=== PATIENT | female | born 1940 | race Caucasian/White ===

== ENCOUNTER → 2017-01-04 | Outpatient (CLI) | payer MEDICARE, BC | END | disposition home or self-care (01) | LOC: GMAL 14:46 | PROVIDERS: ATTEND Family Medicine | DX: D51.3 Other dietary vitamin B12 deficiency anemia (principal); E55.9 Vitamin D deficiency, unspecified ==

== ENCOUNTER → 2017-01-11 | Outpatient (CLI) | payer MEDICARE | END | disposition home or self-care (01) | LOC: GMAL 15:12 | PROVIDERS: ATTEND Family Medicine | DX: R53.83 Other fatigue (principal) ==

== ENCOUNTER 2017-02-09 11:38 | Emergency (ER) | payer MEDICARE ==
[2017-02-09 11:46] VITALS: BP 140/69; TEMP 98.5; O2SAT 98
--- NOTE | 2017-02-09 12:18 | RAD ---
EXAM DESCRIPTION: Knee,Right Complete CLINICAL HISTORY: 76 years, Female, right knee pain after fall COMPARISON: None TECHNIQUE: Three views of the right knee FINDINGS: There is a transverse nondisplaced fracture through the lower third of the patella. This extends into the articular surface of the patella and there is a related moderate joint effusion. This is an acute fracture with no evidence of healing. Chondrocalcinosis of the menisci noted consistent with CPPD/pseudogout. IMPRESSION: 1. Acute transverse nondisplaced intra-articular fracture patella 2. CPPD/pseudogout Electronically signed by: Jhon Hickey MD 02/09/2017 12:17 PM CDT
[2017-02-09] MEDS ORDERED: traMADol HCL 50 MG TAB PO ONE (12:31)
--- NOTE | 2017-02-09 12:36 | ED.PDOC ---
History of Present Illness - General Chief Complaint: Lower Extremity Injury Stated Complaint: right knee discomfort Time Seen by Provider: 02/09/17 11:41 Source: patient Exam Limitations: no limitations - History of Present Illness Initial Comments: Patient slipped on water in the bathroom and struck her right knee on the floor. She also struck her face. She complains of right knee pain. She did not lose consciousness. She had no chest pain nor light-headedness/dizziness before or after falling. She said she simply slipped. Pain is over the anterior patella, non-radiating, throbbing, constant, worse with movement, better with rest, no previous trauma to that knee. No other complaints. Timing/Duration: 1-3 hours Severity: moderate Improving Factors: rest Worsening Factors: movement Associated Symptoms: denies symptoms Allergies/Adverse Reactions: Allergies Celecoxib [From Celebrex] Allergy (Verified 02/09/17 11:49) Hives Statins Adverse Reaction (Verified 02/09/17 11:49) Other "Makes me feel bad" Home Medications: Ambulatory Orders Levothyroxine Sodium [Synthroid] 75 mcg PO DAILY 03/04/14 Clopidogrel Bisulfate [Plavix] 75 mg PO DAILY 06/06/15 Docusate Sodium 100 mg PO PRN PRN 06/06/15 Nebivolol HCl [Bystolic] 5 mg PO DAILY 06/06/15 Omeprazole Magnesium [Prilosec Otc] 20 mg PO DAILY 06/06/15 Aspirin [Aspirin Adult Low Dose] 81 mg PO DAILY 03/10/16 Eplerenone 25 mg PO DAILY 03/10/16 Ezetimibe [Zetia] 10 mg PO DAILY 03/10/16 Insulin Lispro (Human) [Humalog] 4 unit SC .MEALS 03/10/16 Losartan Potassium [Cozaar] 25 mg PO DAILY 03/10/16 Montelukast Sodium [Singulair] 10 mg PO BEDTIME 03/10/16 Metoprolol Tartrate 25 mg PO BID #30 tab 07/24/16 Venlafaxine Xr [Effexor XR] 75 mg PO DAILY 07/24/16 Insulin Glargine [Lantus Solostar] 25 unit SC DAILY 02/09/17 Review of Systems - Review of Systems Constitutional: States: no symptoms reported EENTM: States: no symptoms reported Respiratory: States: no symptoms reported Cardiology: States: no symptoms reported Gastrointestinal/Abdominal: States: no symptoms reported Genitourinary: States: no symptoms reported Musculoskeletal: States: see HPI Skin: States: no symptoms reported Neurological: States: no symptoms reported Endocrine: States: no symptoms reported Hematologic/Lymphatic: States: no symptoms reported Past Medical History (General) - Patient Medical History Hx Seizures: No Hx Stroke: No Hx Dementia: No Hx Asthma: No Hx of COPD: Yes Hx Cardiac Disorders: Yes - [place]-04/2015 Hx Congestive Heart Failure: No Hx Pacemaker: No Hx Hypertension: Yes Hx Thyroid Disease: Yes Hx Diabetes: Yes - Type 1 Hx Gastroesophageal Reflux: Yes Hx Renal Disease: No Hx Cancer: No Hx of HIV: No Hx Hepatitis C: No Hx MRSA: No Surgical History: tonsillectomy - Vaccination History Hx Tetanus, Diphtheria Vaccination: No Hx Influenza Vaccination: Yes - 2016 Hx Pneumococcal Vaccination: Yes - Social History Hx Tobacco Use: No Hx Chewing Tobacco Use: No Hx Alcohol Use: No Hx Substance Use: No Hx Substance Use Treatment: No Hx Depression: No Hx Physical Abuse: No Hx Emotional Abuse: No Hx Suspected Abuse: No - Female History Patient : No Family Medical History - Family History Mother Living Status: Age at (years of age): 81 Cause of : lung cancer Hx Family Cancer: Yes - lung Father Living Status: Age at (years of age): 77 Hx Family;Other: aneursym Physical Exam - Physical Exam General Appearance: Alert Respiratory: lungs clear Cardiovascular/Chest: regular rate, rhythm Gastrointestinal/Abdominal: normal bowel sounds, non tender, soft Extremity: other - TTP over anterior patella. Mild swelling. Painful AROM and PROM to flexion and extension of the lower right leg. Neurologic: no motor/sensory deficits Progress - Progress Progress: 02/09/17 12:38 3 view of right knee showed acute transverse fracture of the right patella. Patient received tramadol 50 mg po x one. 02/09/17 15:14 Patient provided with a wheelchair. Departure - Departure Clinical Impression: Patella fracture Disposition: Discharge to Home or Self Care Condition: Good Departure Forms: ED Discharge - Pt. Copy, Patient Portal Self Enrollment Diet: resume usual diet Activity: other - Follow up with orthopedics on monday Referrals: Jose Gould III, MD [Primary Care Provider] - 1-2 Weeks Home Medications: Ambulatory Orders Levothyroxine Sodium [Synthroid] 75 mcg PO DAILY 03/04/14 Clopidogrel Bisulfate [Plavix] 75 mg PO DAILY 06/06/15 Docusate Sodium 100 mg PO PRN PRN 06/06/15 Nebivolol HCl [Bystolic] 5 mg PO DAILY 06/06/15 Omeprazole Magnesium [Prilosec Otc] 20 mg PO DAILY 06/06/15 Aspirin [Aspirin Adult Low Dose] 81 mg PO DAILY 03/10/16 Eplerenone 25 mg PO DAILY 03/10/16 Ezetimibe [Zetia] 10 mg PO DAILY 03/10/16 Insulin Lispro (Human) [Humalog] 4 unit SC .MEALS 03/10/16 Losartan Potassium [Cozaar] 25 mg PO DAILY 03/10/16 Montelukast Sodium [Singulair] 10 mg PO BEDTIME 03/10/16 Metoprolol Tartrate 25 mg PO BID #30 tab 07/24/16 Venlafaxine Xr [Effexor XR] 75 mg PO DAILY 07/24/16 Insulin Glargine [Lantus Solostar] 25 unit SC DAILY 02/09/17 Additional Instructions: Ibuprofen and ice for pain control. May use hydrocodone as prescribed. Follow up with orthopedics on monday.
[2017-02-09] MEDS ORDERED: TETANUS,DIPHTHERIA,PERTUSSIS 1 EA SYG IM ONE (12:50)
== END 2017-02-09 16:00 | disposition home or self-care (01) ==
LOC: ER 11:38
DX: S82.031A Displaced transverse fracture of right patella, initial encounter for closed fracture (principal); J44.9 Chronic obstructive pulmonary disease, unspecified; I25.2 Old myocardial infarction; E07.9 Disorder of thyroid, unspecified; K21.9 Gastro-esophageal reflux disease without esophagitis; E10.8 Type 1 diabetes mellitus with unspecified complications; I10 Essential (primary) hypertension; Z88.8 Allergy status to other drugs, medicaments and biological substances; Z79.4 Long term (current) use of insulin; Z79.899 Other long term (current) drug therapy; Z23 Encounter for immunization; Z79.82 Long term (current) use of aspirin; W01.0XXA Fall on same level from slipping, tripping and stumbling without subsequent striking against object, initial encounter; Y92.002 Bathroom of unspecified non-institutional (private) residence as the place of occurrence of the external cause

== ENCOUNTER → 2017-04-04 | Outpatient (CLI) | payer MEDICARE | LOC: GMAL 10:03 | PROVIDERS: ATTEND Family Medicine | DX: E55.9 Vitamin D deficiency, unspecified (principal) ==

== ENCOUNTER → 2017-04-11 | Outpatient (CLI) | payer MEDICARE | END | disposition home or self-care (01) | LOC: GMAL 14:41 | PROVIDERS: ATTEND Family Medicine | DX: R07.89 Other chest pain (principal) ==

== ENCOUNTER → 2017-06-20 | Outpatient (CLI) | payer MEDICARE | LOC: MAMMO 11:54 | PROVIDERS: ATTEND Family Medicine | DX: Z12.31 Encounter for screening mammogram for malignant neoplasm of breast (principal) | CPT/HCPCS: G0202; G0279 ==

== ENCOUNTER 2017-07-04 13:42 | Observation (INO) | payer MEDICARE ==
[2017-07-04] MEDS ORDERED: LIDOCAINE VIS-MYLANTA 30 ML UD PO ONE (14:06)
--- NOTE | 2017-07-04 14:14 | ED.PDOC ---
History of Present Illness - General Chief Complaint: Chest Pain/LA Stated Complaint: chest discomfort Time Seen by Provider: 07/04/17 14:10 Source: patient Exam Limitations: no limitations Additional Information: PT REPORTS SOME UPPER CHEST/ SUBSTERNAL DISCOMFORT. FEELS LIKE "INDIGESTION" BUT HAS HAD SIMILAR SYMPTOMS IN PAST WHICH WERE ASSOCIATED WITH AN LA. - History of Present Illness Timing/Duration: other - 2 DAYS. Severity: mild Location: substernal Activities at Onset: rest Improving Factors: nothing Worsening Factors: nothing Nitro Today/Relief: 0.4 mg x 1, mild relief Associated Symptoms: shortness of breath Allergies/Adverse Reactions: Allergies Celecoxib [From Celebrex] Allergy (Verified 02/09/17 11:49) Hives Statins Adverse Reaction (Verified 02/09/17 11:49) Other "Makes me feel bad" Home Medications: Ambulatory Orders Levothyroxine Sodium [Synthroid] 75 mcg PO DAILY 03/04/14 Clopidogrel Bisulfate [Plavix] 75 mg PO DAILY 06/06/15 Docusate Sodium 100 mg PO PRN PRN 06/06/15 Nebivolol HCl [Bystolic] 5 mg PO DAILY 06/06/15 Omeprazole Magnesium [Prilosec Otc] 20 mg PO DAILY 06/06/15 Aspirin [Aspirin Adult Low Dose] 81 mg PO MONTSERRAT-OTH-DAY 03/10/16 Eplerenone 25 mg PO DAILY 03/10/16 Ezetimibe [Zetia] 10 mg PO DAILY 03/10/16 Insulin Lispro (Human) [Humalog] 4 unit SC .MEALS 03/10/16 Losartan Potassium [Cozaar] 25 mg PO DAILY 03/10/16 Montelukast [Singulair] 10 mg PO BEDTIME 03/10/16 Metoprolol Tartrate 25 mg PO BID #30 tab 07/24/16 Venlafaxine Xr [Effexor XR] 75 mg PO DAILY 07/24/16 Insulin Glargine [Lantus Solostar] 25 unit SC DAILY 02/09/17 Review of Systems - Review of Systems Constitutional: Denies: chills, fever EENTM: States: no symptoms reported Respiratory: States: short of breath. Denies: cough, orthopnea, wheezing Cardiology: States: chest pain. Denies: palpitations, syncope Gastrointestinal/Abdominal: States: nausea. Denies: abdominal pain, diarrhea, vomiting Genitourinary: States: no symptoms reported Musculoskeletal: States: no symptoms reported Skin: States: no symptoms reported, other - NO DIAPHORESIS Neurological: States: no symptoms reported Endocrine: States: no symptoms reported Hematologic/Lymphatic: States: no symptoms reported Past Medical History (General) - Patient Medical History Hx Seizures: No Hx Stroke: No Hx Dementia: No Hx Asthma: No Hx of COPD: Yes Hx Cardiac Disorders: Yes - [place]-04/2015, cardiac stents Hx Congestive Heart Failure: No Hx Pacemaker: No Hx Hypertension: Yes Hx Thyroid Disease: Yes Hx Diabetes: Yes - Type 1 Hx Gastroesophageal Reflux: Yes Hx Renal Disease: No Hx Cancer: No Hx of HIV: No Hx Hepatitis C: No Hx MRSA: No - Vaccination History Hx Tetanus, Diphtheria Vaccination: No Hx Influenza Vaccination: Yes - 2016 Hx Pneumococcal Vaccination: Yes - Social History Hx Tobacco Use: No Hx Chewing Tobacco Use: No Hx Alcohol Use: No Hx Substance Use: No Hx Substance Use Treatment: No Hx Depression: No Hx Physical Abuse: No Hx Emotional Abuse: No Hx Suspected Abuse: No - Female History Patient is a Female of Child Bearing Age (10 -59 yrs old): No Patient : No Family Medical History - Family History Mother Living Status: Age at (years of age): 81 Cause of : lung cancer Hx Family Cancer: Yes - lung Father Living Status: Age at (years of age): 77 Hx Family;Other: aneursym Physical Exam - Physical Exam General Appearance: Alert, Comfortable, No apparent distress Eyes, Ears, Nose, Throat Exam: PERRL/EOMI, normal ENT inspection Neck: non-tender, full range of motion, supple, normal inspection Respiratory: lungs clear, normal breath sounds, no respiratory distress Cardiovascular/Chest: regular rate, rhythm, no murmur Gastrointestinal/Abdominal: normal bowel sounds, non tender, soft, no organomegaly Extremity: normal range of motion, normal inspection Neurologic: normal mood/affect, oriented x 3 Skin Exam: normal color, warm/dry Lymphatic: no adenopathy Progress - Progress Progress: 07/04/17 15:45 FEELS BETTER - EKG/XRAY/CT EKG: Sinus - RATE 63, NL AXIS, NL INTERVALS, RBBB, , nonspecific ST T wave Chg, Unchanged from - 07/24/2016, NAIP Departure - Departure Clinical Impression: Atypical chest pain, Diabetes 1.5, managed as type 2 CHF (congestive heart failure) Qualifiers: Congestive heart failure type: unspecified congestive heart failure type Congestive heart failure chronicity: acute Qualified Code(s): I50.9 - Heart failure, unspecified Hypertension Qualifiers: Hypertension type: essential hypertension Qualified Code(s): I10 - Essential ( primary) hypertension Time of Disposition: 15:48 - D/W DR LEE, AGREES TO ADMIT Disposition: Admit Patient Condition: Good Departure Forms: ED Discharge - Pt. Copy, Patient Portal Self Enrollment Referrals: Jose Gould III, MD [Primary Care Provider] - 1-2 Weeks Home Medications: Ambulatory Orders Levothyroxine Sodium [Synthroid] 75 mcg PO DAILY 03/04/14 Clopidogrel Bisulfate [Plavix] 75 mg PO DAILY 06/06/15 Docusate Sodium 100 mg PO PRN PRN 06/06/15 Nebivolol HCl [Bystolic] 5 mg PO DAILY 06/06/15 Omeprazole Magnesium [Prilosec Otc] 20 mg PO DAILY 06/06/15 Aspirin [Aspirin Adult Low Dose] 81 mg PO MON[place]AT-OTH-DAY 03/10/16 Eplerenone 25 mg PO DAILY 03/10/16 Ezetimibe [Zetia] 10 mg PO DAILY 03/10/16 Insulin Lispro (Human) [Humalog] 4 unit SC .MEALS 03/10/16 Losartan Potassium [Cozaar] 25 mg PO DAILY 03/10/16 Montelukast [Singulair] 10 mg PO BEDTIME 03/10/16 Metoprolol Tartrate 25 mg PO BID #30 tab 07/24/16 Venlafaxine Xr [Effexor XR] 75 mg PO DAILY 07/24/16 Insulin Glargine [Lantus Solostar] 25 unit SC DAILY 02/09/17
--- NOTE | 2017-07-04 14:52 | RAD ---
EXAM DESCRIPTION: Chest,1 View CLINICAL HISTORY: 76 years Female, chest pain COMPARISON: July 24, 2016 TECHNIQUE: AP portable chest. FINDINGS: Fair expansion of the lungs is evident without consolidation, layering effusion, or large mass. Heart size and vascularity appear normal for AP technique and degree of inspiration. No gross bony, hilar, or mediastinal abnormalities are noted. IMPRESSION: Normal chest, one view Electronically signed by: Clay Guerrero MD 07/04/2017 2:50 PM CDT
--- NOTE | 2017-07-04 16:17 | HP ---
HISTORY OF PRESENT ILLNESS: This 76 year-old white female is placed in the hospital for observation from the Emergency Room because of the presence of a significant chest discomfort with heaviness and significant indigestion. These symptoms are somewhat reminiscent of symptoms that she had when she had a heart attack in 2015, yet are less significant now compared to then. They were associated with shortness of breath and mild nausea without emesis. She tried a Nitroglycerin at home and it helped a little bit on the pain. She also had a GI cocktail in the Emergency Room which also helped a little bit with the indigestion pain. There are no aggravating factors. Her petroleum analyst is Dr. Richardson at [facility]. A couple of years ago when she had significant heart discomfort, she had an episode where they took her to coronary angiography and found that she had a significant lesion and she subsequently has had 2 stents placed. At this one time she failed to fully recover and was unconscious on a ventilator for about 17 days at [facility]. She was placed on cardiac support with a heart/lung machine to assist with her survival. She subsequently had several nodules in her throat down below her vocal cords which had to be approached by Dr. Ng, [facility] in [place] to remove. She does not know the actual nature or the cause of her prolonged loss of consciousness and this needs to be requested if possible to assist to assure that she does not get exposed to similar situations in the future. The patient is placed in the hospital for serial EKG, cardiac enzymes as well as GI intervention to assist with the significant chest discomfort she has and to rule out underlying ischemic disease contributing to her symptoms. PAST MEDICAL HISTORY: 1. Chest pain with a previous heart attack and now more recently with congestive heart failure with elevated BNP. She has some abnormal EKGs. 2. Hypertension. 3. Diabetes mellitus on insulin therapy for 40 years. 4. History of coronary artery disease with 2 stents. PAST SURGICAL HISTORY: 1. Two coronary stents. 2. Tonsillectomy age 11. 3. Throat surgery for irritated nodules from prolonged intubation recently by ENT. 4. Angio and loss of consciousness for 17 days when she had her heart attack. CURRENT MEDICATIONS: Please refer to nurses' notes for a list of home medicines. ALLERGIES: CELECOXIB AND STATINS. FAMILY HISTORY: Positive for cervical and lung cancer in the mother. Coronary artery disease, abdominal aortic aneurysm. 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 REVIEW OF SYSTEMS: She had gained about 8 pounds of weight in the last 6 months. No fever or chills. HEENT: Decreased vision with macular degenerative changes and decreased hearing requiring hearing aids. LUNGS: No significant cough or hemoptysis but she does get short of breath upon exertion. CARDIOVASCULAR: Some chest discomfort with indigestion and history of myocardial infarction with symptoms currently somewhat similar to when she had her heart attack before, but not as severe. GASTROINTESTINAL: Mild nausea without emesis. No blood in the stools. GENITOURINARY: No dysuria. EXTREMITIES: No significant edema. NEUROLOGIC: No significant headaches or focal weakness. PHYSICAL EXAMINATION: VITAL SIGNS: Afebrile, pulse 74, blood pressure 152/69, pulse oximetry 97% on room air. Weight 88.8 kilos. GENERAL: The patient is awake and alert in no acute distress at this time. HEENT: History of macular degeneration and wears hearing aids. NECK: Supple. No adenopathy. CHEST: Lungs are generally very clear breath sounds. CARDIOVASCULAR: Heart tones are somewhat distant yet regular. ABDOMEN: Fairly good bowel tones. No significant masses, organomegaly or tenderness. EXTREMITIES: Good range of motion and no significant pedal edema. NEUROLOGIC: No focal neurological deficits are noted. The patient is awake, alert and oriented and communicative. LABORATORY: White count of 5,600, hemoglobin 12, slightly hypochromic red blood cell presentation with normal platelets. INR of 0.97, D-dimer 237. Chemistry shows potassium 4.2, CO2 of 26, BUN and creatinine normal, glucose 80 , calcium 9.1, magnesium normal at 1.9. Liver enzymes normal. Troponin zero. Beta natriuretic peptide 317 and was up to 490 on 05/2015. Albumin 3.6, lipase 18. Urinalysis is pending. Chest x-ray shows no acute changes. ASSESSMENT: 1. Acute chest discomfort with associated indigestion similar to when she had a heart attack but not as severe with the patient being observed to do serial EKGs and cardiac enzymes to rule out underlying ischemic coronary disease. 2. Congestive heart failure of undetermined type fairly new onset with elevated beta natriuretic peptide. 3. Possible gastroesophageal reflux disease. 4. Abnormal EKG with right bundle branch block. 5. History of hypertension. 6. History of diabetes mellitus on insulin therapy for 40 years. 7. Coronary artery disease by history. PLAN: Will observe the patient overnight with repeat EKG and cardiac enzymes to be followed. Continue with Prilosec and Carafate to assist with possible underlying esophagitis. The patient is scheduled to be seen by her police detention attendant for the macular degeneration at about 11:00 tomorrow morning so if possible to be discharged if stable by 10:30 she would be able to make it to her appointment. Close reevaluation and followup with Dr. Gould is important as well as with Dr. Richardson. #[id number] [facility]
[2017-07-04] MEDS ORDERED: DEXTROSE 50% 25 GM/50 ML SYG IV PRN (17:28)
[2017-07-04] MEDS ORDERED: SODIUM CHLORIDE 0.9% (FLUSH) 10 ML SYG IV PRN (17:28)
[2017-07-04] MEDS ORDERED: NITROGLYCERIN 0.4 MG 25 EA TAB SL PRN (17:28)
[2017-07-04] MEDS ORDERED: MORPHINE SULFATE INJ 10 MG/ML VIAL IV PRN (17:28)
[2017-07-04] MEDS ORDERED: GLUCAGON INJ 1 MG VIAL SUBCU PRN (17:28)
[2017-07-04] MEDS ORDERED: ACETAMINOPHEN 325 MG TAB PO PRN (17:28)
[2017-07-04] MEDS ORDERED: IV SET AND CAP CHANGE INJ INJ SCH (17:30)
[2017-07-04] MEDS ORDERED: ENOXAPARIN SODIUM 40 MG/0.4 ML SYG SUBCU SCH (17:30)
[2017-07-04] MEDS: FUROSEMIDE 40 MG TAB PO SCH (18:32)
[2017-07-04] MEDS: SUCRALFATE 1 GM/10 ML 1 GM UD PO SCH (20:32)
[2017-07-04] MEDS: SODIUM CHLORIDE 0.9% (FLUSH) 10 ML SYG IV SCH (20:32)
[2017-07-04] MEDS ORDERED: METOPROLOL TARTRATE 25 MG TAB PO SCH (21:00)
[2017-07-04] MEDS ORDERED: MONTELUKAST 10 MG TAB PO SCH (21:00)
[2017-07-04] MEDS ORDERED: INSULIN,ISOP(HUMAN(NPH) 100 UNITS/ML PEN SUBCU ONE (21:02)
[2017-07-04] MEDS: INSULIN LISPRO 100 UNITS/ML PEN SUBCU SCH ×2 (21:05→21:11)
[2017-07-04] MEDS ORDERED: INSULIN LISPRO 100 UNITS/ML PEN SUBCU ONE (21:18)
[2017-07-05] MEDS ORDERED: INSULIN LISPRO 100 UNITS/ML PEN SUBCU ONE (02:18)
[2017-07-05 03:26] VITALS: O2SAT 98
[2017-07-05] MEDS ORDERED: PANTOPRAZOLE SODIUM TAB 40 MG PO SCH (06:30)
[2017-07-05] MEDS: SUCRALFATE 1 GM/10 ML 1 GM UD PO SCH ×2 (06:32→09:07)
[2017-07-05] MEDS: INSULIN LISPRO 100 UNITS/ML PEN SUBCU SCH (07:17)
[2017-07-05] MEDS ORDERED: INSULIN DETEMIR 100 UNITS/ML PEN SUBCU ONE (08:51)
[2017-07-05] MEDS ORDERED: LEVOTHYROXINE SODIUM 0.075 MG TAB PO SCH (09:00)
[2017-07-05] MEDS ORDERED: EPLERENONE 25 MG PO SCH (09:00)
[2017-07-05] MEDS ORDERED: EZETIMIBE 10 MG TAB PO SCH (09:00)
[2017-07-05] MEDS ORDERED: LOSARTAN POTASSIUM 25 MG TAB PO SCH (09:00)
[2017-07-05] MEDS ORDERED: METOPROLOL TARTRATE 25 MG TAB PO SCH (09:00)
[2017-07-05] MEDS ORDERED: VENLAFAXINE XR 75 MG CAP PO SCH (09:00)
[2017-07-05] MEDS ORDERED: ASPIRIN TABLET 325 MG TAB PO SCH (09:00)
[2017-07-05] MEDS: FUROSEMIDE 40 MG TAB PO SCH (09:07)
[2017-07-05] MEDS: NEBIVOLOL 2.5 MG TAB PO SCH ×2 (09:08→09:35)
[2017-07-05] MEDS: SODIUM CHLORIDE 0.9% (FLUSH) 10 ML SYG IV SCH (09:10)
[2017-07-05 10:34] VITALS: BP 138/72; TEMP 98.6
--- NOTE | 2017-07-11 08:12 | DS ---
SUPERVISING PHYSICIAN: Lai Medellin MD DISCHARGE DIAGNOSIS: 1. Epigastric chest pains with associated indigestion with no evidence of acute ischemic changes on EKGs and cardiac enzymes remaining negative. 2. Congestive heart failure of undetermined etiology, new onset with elevated beta natriuretic peptide n admission. 3. Questionable gastroesophageal reflux disease. 4. Abnormal EKG with right bundle branch block. 5. History of hypertension. 6. History of diabetes mellitus on insulin therapy. 7. Coronary artery disease by history. HISTORY OF PRESENT ILLNESS: Ms. Villegas is a 76-year-old, female patient who was placed in the hospital for observation from the Emergency Room because of the presence of a significant chest discomfort with heaviness and significant indigestion. These symptoms were somewhat reminiscent of symptoms that she had when she had a heart attack in 2014, yet less significant now compared to then. They were associated with shortness of breath and mild nausea without emesis. She tried a Nitroglycerin at home and it helped a little bit on the pain. She also had a GI cocktail in the Emergency Room which also helped a little bit with the indigestion pain. There are no aggravating factors. Her power and recovery superintendent is Dr. Richardson in [place]. A couple of years ago when she had significant heart discomfort, she had an episode where they took her to coronary angiography and found that she had a significant lesion and she subsequently has had 2 stents placed. At that time, she failed to fully recover and was unconscious on a ventilator for about 17 days at [facility]. She was placed on cardiac support with a heart/lung machine to assist with her survival. She subsequently had several nodules in her throat below her vocal cords which had to be approached by Dr. Ng, [facility] in [place] to remove. She does not know the actual nature or the cause of her prolonged loss of consciousness. The patient is placed in observation for serial EKGs, cardiac enzymes as well as GI intervention to assist with the significant chest discomfort and to rule out underlying ischemic disease contributing to her symptoms. LABORATORY: CBC on admission showed white count 5.6, at discharge it was 4.6. Hemoglobin 12.3, hematocrit 37.6. Platelet count 210,000. Differential without left shift. Coagulation studies showed a normal PT, PT-T, elevated D- dimer at 237. Chemistries on admission showed normal electrolytes as well as at discharge with potassium 4.0. Blood sugars were elevated on admission at 342 , but had been well controlled prior to discharge anywhere from 62 to 109. Membranes are bilaterally clear 1.9. Three sets of troponins were all less than 0.02 as well as CPK within normal limits. Lipid panel showed normal triglycerides and cholesterol with LDL 70, HDL 63. Amylase and lipase were within normal limits. Urinalysis showed 500 glucose and trace intact blood, otherwise within normal limits. RADIOLOGY: Chest x-ray in the Emergency Department per radiologic interpretation showed normal one view chest. EKG showed normal sinus rhythm with right bundle branch block, unchanged through admission. HOSPITAL COURSE: As noted in history of present illness, Ms. Villegas was placed in observation to rule out acute ischemic event secondary to coronary artery disease. She was given a GI cocktail in the Emergency Room for her chest discomfort and this did essentially resolve her pain as well as some nitro. She was placed on observation pain free and had no return of her chest pain. She had no changes on telemetry as well as 12 lead. She was felt stable enough to be discharged to followup with Dr. Richardson and Dr. Gould. PLAN: Ms. Villegas was discharged on 07/05/17 to have close clinical followup with her primary care provider, Dr. Gould, as scheduled in 07/12/17 as well as with Dr. Richardson on 07/11/17 at 12 PM. She was to resume her home medications as instructed to limit spicy foods for indigestion and avoid NSAIDs other than prescribed aspirin. She was to return to the hospital should she have any concerning symptoms. At discharge, new prescriptions included: 1. Nitroglycerin 0.4 mg tablets for chest pains as directed. 2. Carafate 1 gram 3 times daily with food and snacks, #40. All other medications were resumed as previous to hospitalization. Diet at discharge was diabetic diet as tolerated. Activities to increase as tolerated. Condition at discharge was stable and improved. #[id number] [facility]
== END 2017-07-05 11:01 | disposition home or self-care (01) ==
LOC: ER 13:42 → MS 16:16
PROVIDERS: ADMIT Emergency Medicine; ATTEND Nurse Practitioner Family
DX: R07.89 Other chest pain (principal); I25.10 Atherosclerotic heart disease of native coronary artery without angina pectoris; I25.2 Old myocardial infarction; I11.0 Hypertensive heart disease with heart failure; I50.9 Heart failure, unspecified; E11.9 Type 2 diabetes mellitus without complications; I45.10 Unspecified right bundle-branch block; Z95.5 Presence of coronary angioplasty implant and graft; Z79.4 Long term (current) use of insulin; Z79.82 Long term (current) use of aspirin; Z79.899 Other long term (current) drug therapy; Z88.8 Allergy status to other drugs, medicaments and biological substances; Z82.49 Family history of ischemic heart disease and other diseases of the circulatory system; Z80.1 Family history of malignant neoplasm of trachea, bronchus and lung; Z80.49 Family history of malignant neoplasm of other genital organs
CPT/HCPCS: 36415 ×4; 36416 ×3; 71010; 80048 ×2; 80061; 80076; 81001; 82150; 82550 ×3; 82553 ×3; 82948 ×4; 83690; 83880; 84484 ×3; 85025 ×2; 85379; 85610; 85730; 93005; 94760 ×2; 96372 ×2; 99284; G0378; J1650; J1815 ×2

== ENCOUNTER → 2017-07-11 | Outpatient (CLI) | payer MEDICARE ==
--- NOTE | 2017-07-11 14:37 | US ---
EXAM DESCRIPTION: Ultrasound Breast,Right CLINICAL HISTORY: 76 yearsFemaleABNORMAL MAMMO COMPARISON: Diagnostic digital 3-D tomosynthesis mammogram right breast 06/20/2017. TECHNIQUE: Transcutaneous scanning of the anterior right breast, inferior to the nipple, utilizing two-dimensional and Doppler modes. Scanning performed by the airplane technician and Dr. Krueger. FINDINGS: Scanning 600 clock position 2 cm from the nipple. Irregular shaped, hypoechoic mass is present with a solitary echogenic shadowing calcification. Well-defined and ill-defined borders. Nonparallel orientation with posterior acoustic shadowing. Dimensions are 1.5 x 1.5 x 1.1 cm. IMPRESSION: BI-RADS CATEGORY: 4A - LOW SUSPICION FOR MALIGNANCY. Surgical consultation and tissue diagnosis should be considered. Written communication explaining the results and follow-up will be mailed to the patient and referring care provider. The findings and the follow-up plan were reviewed in person with the patient after the examination. The referring care provider will be contacted directly by phone or in person, to discuss the FINDINGS and IMPRESSION. Electronically signed by: Tyler Krueger MD 07/11/2017 2:36 PM CDT Workstation: [id number]
== END | disposition home or self-care (01) ==
LOC: MAMMO 12:30
PROVIDERS: ATTEND Family Medicine
DX: R92.8 Other abnormal and inconclusive findings on diagnostic imaging of breast (principal)

== ENCOUNTER → 2017-07-25 | Outpatient (CLI) | payer MEDICARE ==
--- NOTE | 2017-07-25 09:51 | OP ---
DATE OF PROCEDURE: 07/25/17 PREOPERATIVE DIAGNOSIS: 1. Abnormal right mammogram. POSTOPERATIVE DIAGNOSIS: 1. Abnormal right mammogram. PROCEDURE: 1. Sonographically guided needle core biopsy, right breast mass. SURGEON: Segun King MD. WATCH REPAIR TECHNICIAN: None. ANESTHESIA: Local infiltration of 1% lidocaine. INDICATION: The patient is a 77-year-old female who on routine mammography was found to have an irregularly shaped, solid mass and she was brought to the Ultrasound Department for sonographically guided biopsy today after the risks, benefits and alternatives to this procedure were discussed and accepted. FINDINGS: Several good cores were obtained and they were sent for pathologic evaluation and that is pending. PROCEDURE: The patient was placed in the supine position. The right breast was examined using the ultrasound probe. The medial aspect of the breast medial to the ultrasound probe was then prepped with Betadine and draped with sterile towel. Local infiltration of anesthesia was obtained with 1% lidocaine and then lidocaine was infiltrated between the mass and the skin. A stab wound was made with a 15 blade and then using the biopsy device, several cores were taken. Hemostasis was obtained with pressure and then a single suture of 4-0 Nylon was used to close the biopsy site. Sterile pressure dressing was applied. The patient tolerated the procedure well. The specimens were sent for pathologic evaluation. Estimated blood loss was less than 5 mL. #[id number] [facility]
--- NOTE | 2017-07-25 14:49 | US ---
EXAM DESCRIPTION: Biopsy/Needle Guidance - Ultrasound CLINICAL HISTORY: 77 yearsFemaleABN MAMMO COMPARISON: Diagnostic ultrasound of the right breast on 07/11/2017. TECHNIQUE: The procedure was performed by Dr. King. Repeat ultrasound localized the lesion at the 600 clock position of the right breast. Sterile preparation. Sterile ultrasound guidance. FINDINGS: Multiple images prior to the procedure confirm the abnormal solid mass with no significant change since the prior study. Multiple orthogonal images during the procedure show the echogenic needle within the mass. IMPRESSION: Successful ultrasound-guided fine-needle core biopsy of right breast mass by Dr. King. Pathology examination at remote facility, results pending. Electronically signed by: Tyler Krueger MD 07/25/2017 2:47 PM CDT Workstation: [id number]
== END | disposition home or self-care (01) ==
LOC: US 10:49
PROVIDERS: ATTEND Surgery
PROC: 0HBT3ZX Excision of Right Breast, Percutaneous Approach, Diagnostic (ICD-10-PCS; principal; 2017-07-25)
PROC: BH40ZZZ Ultrasonography of Right Breast (ICD-10-PCS; 2017-07-25)
DX: R92.8 Other abnormal and inconclusive findings on diagnostic imaging of breast (principal)

== ENCOUNTER → 2017-08-01 | Outpatient (CLI) | payer MEDICARE ==
--- NOTE | 2017-08-01 16:47 | RAD ---
EXAM DESCRIPTION: Chest,2 Views CLINICAL HISTORY: CARCINOMA BREAST COMPARISON: July 04, 2017 FINDINGS: Two-view chest x-ray shows cardiomediastinal silhouette and pulmonary vasculature to be within normal limits. Mild calcifications of the thoracic aortic arch are noted. The lungs are hyperinflated without acute appearing infiltrate or consolidation.. Costophrenic angles are sharp. Moderate disc degenerative changes of the spine are seen. IMPRESSION: No radiographic evidence of acute cardiopulmonary disease in this emphysematous, senescent chest. Electronically signed by: Vincent Pierre MD 08/01/2017 4:45 PM CDT
== END ==
LOC: LAB.O 13:32
PROVIDERS: ATTEND Surgery
DX: C50.811 Malignant neoplasm of overlapping sites of right female breast (principal)

== ENCOUNTER → 2017-08-03 | Outpatient (CLI) | payer MEDICARE ==
--- NOTE | 2017-08-07 08:46 | NM ---
EXAM DESCRIPTION: Bone Scan, Whole Body CLINICAL HISTORY: BREAST CA COMPARISON: None Available. RADIOPHARMACEUTICAL: 29.8 mCi technetium 99 M MDP IV FINDINGS: Total body imaging was obtained. Minimal uptake is observed in the joints and spine consistent with arthritis. No evidence for fracture or metastatic disease is observed. IMPRESSION: 1. Negative for metastatic disease. Electronically signed by: Jose Johnston MD 08/07/2017 8:45 AM CDT
== END ==
LOC: NM 16:16
PROVIDERS: ATTEND Surgery
DX: C50.811 Malignant neoplasm of overlapping sites of right female breast (principal)

== ENCOUNTER → 2017-08-10 | Outpatient (CLI) | payer MEDICARE | END | disposition home or self-care (01) | LOC: GMAL 10:31 | PROVIDERS: ATTEND Family Medicine | DX: E55.9 Vitamin D deficiency, unspecified (principal) ==

== ENCOUNTER → 2017-08-15 | Outpatient (CLI) | payer MEDICARE | END | disposition home or self-care (01) | LOC: LAB.O 11:28 | PROVIDERS: ATTEND Internal Medicine Cardiovascular Disease | DX: E78.2 Mixed hyperlipidemia (principal); I10 Essential (primary) hypertension ==

== ENCOUNTER 2017-08-28 07:00 | Inpatient (IN) | payer MEDICARE ==
[~2017-08-28 07:00] MED LIST: LACTATED RINGERS 1,000 ML ONE; SODIUM CHL 0.9% 100ML MINI-BAG 100 ML IVPB ONE; ceFAZolin SODIUM 1 GM VIAL ONE
[2017-08-28] MEDS ORDERED: LIDOCAINE 2 % GEL 5 ML TUBE TOP ONE (07:11)
[2017-08-28] MEDS ORDERED: fentaNYL CITRATE INJ 50 MCG/ML AMP ONE (07:11)
[2017-08-28] MEDS ORDERED: INSULIN LISPRO 100 UNITS/ML PEN SUBCU ONE (08:58)
--- NOTE | 2017-08-28 09:11 | HP ---
CHIEF COMPLAINT: Biopsy-proven carcinoma of the right breast. HISTORY OF PRESENT ILLNESS: The patient is a 77-year-old female who had an abnormal mammogram and noted to have a mass in the right breast, suspicious. She underwent sonographically guided needle core biopsy which revealed an invasive carcinoma. After a metastatic workup was negative, she obtained clearance followup her form coverer for general anesthesia. Her Plavix was stopped five days preoperatively and she is brought to the Surgical Suite today for a right modified radical mastectomy after the risks, benefits and alternatives to this including partial mastectomy with no dissection versus sentinel node biopsies. PAST MEDICAL HISTORY: 1. Diabetes. 2. Gastroesophageal reflux disease. 3. Hypertension. 4. Status post myocardial infarction requiring intubation and developed a tracheal stenosis. Her cardiac status, however, has improved significantly and she has undergone a procedure for the tracheal stenosis. CURRENT MEDICATIONS: Her medication list is quite lengthy and includes: 1. Both long-acting and short-acting insulin. 2. Metoprolol. 3. Nitrostat. 4. Levothyroxine. 5. Losartan. 6. Singulair. 7. Venlafaxine. 8. Carvedilol. 9. Eplerenone. 10. Lasix. 11. Aspirin. 12. Zantac. 13. Prilosec. 14. Zetia. 15. Fish oil. 16. Plavix. ALLERGIES: CELEBREX, STATINS, ALTACE. FAMILY HISTORY: Positive for carcinoma of the lung, diabetes, hypertension. SOCIAL HISTORY: The patient is . There is no history of alcohol or tobacco abuse. REVIEW OF SYSTEMS: There is no recent chest pain, shortness of breath, no change in her bowel habits, no hematemesis, melena, or hematochezia. No cough or upper respiratory symptoms and no urinary tract symptoms. PHYSICAL EXAMINATION: GENERAL: The patient is awake, alert, cooperative, in no acute distress. VITAL SIGNS: The patient is currently afebrile, normotensive. HEENT: Sclerae nonicteric. Mucous membranes moist. NECK: Without adenopathy in the cervical and supraclavicular areas. BACK: Without CVA tenderness. CHEST: Equal breath sounds bilaterally. HEART: Regular rhythm. BREAST: Left breast is without discrete mass, skin change or nipple discharge. The right breast is the same other than she has a healing biopsy scar just medial to the areola. ABDOMEN: Soft and benign without any organomegaly or masses. PELVIC/RECTAL: Deferred. EXTREMITIES: Without cyanosis, clubbing or edema. LABORATORY: Urine is clear with 3 to 5 white cells, high urine blood sugar. Blood sugar this morning was 198. Preoperative creatinine is 0.73, potassium 4.4, calcium 8.8, hemoglobin 11.9, white count 5.3, platelet count 226,000, neutrophils 65%. Chest x-ray revealed no acute cardiopulmonary disease. ASSESSMENT: 1. Biopsy-proven carcinoma of the breast. PLAN: The patient is admitted for right modified radical mastectomy after IV Ancef perioperatively. #[id number] [facility]
[2017-08-28] MEDS ORDERED: LACTATED RINGERS 1,000 ML ONE ×2 (10:42→13:16)
[2017-08-28] MEDS ORDERED: ONDANSETRON INJ 4 MG/2 ML VIAL IV PRN (11:52)
[2017-08-28] MEDS: LACTATED RINGERS 1,000 ML IVS PRN (11:54)
[2017-08-28] MEDS ORDERED: DEXTROSE 50% 25 GM/50 ML SYG IV PRN (11:55)
[2017-08-28] MEDS ORDERED: GLUCAGON INJ 1 MG VIAL SUBCU PRN (11:55)
[2017-08-28] MEDS ORDERED: PROPOFOL 200 MG/20 ML VIAL IV ONE (12:00)
[2017-08-28] MEDS ORDERED: LIDOCAINE 1% 10 ML VIAL INJ ONE (12:00)
[2017-08-28] MEDS ORDERED: NITROGLYCERIN 2% 1 GM UD TOP ONE (12:00)
[2017-08-28] MEDS ORDERED: DEXAMETHASONE INJ 10 MG/ML VIAL IV ONE (12:00)
[2017-08-28] MEDS: MORPHINE SULFATE INJ 10 MG/ML VIAL IV PRN ×3 (12:08→12:27)
[2017-08-28] MEDS: INSULIN LISPRO 100 UNITS/ML PEN SUBCU SCH ×3 (12:10→21:16)
[2017-08-28] MEDS ORDERED: LEVALBUTEROL NEBS 1.25 MG/3 ML VIAL NEB ONE (12:33)
[2017-08-28] MEDS ORDERED: ceFAZolin SODIUM 2 GM in SODIUM CHLORIDE 0.9% 100ML 100 ML IVPB SCH (13:00)
--- NOTE | 2017-08-28 13:32 | OP ---
DATE OF PROCEDURE: 08/28/17 PREOPERATIVE DIAGNOSIS: 1. Biopsy-proven carcinoma of the right breast. POSTOPERATIVE DIAGNOSIS: 1. Biopsy-proven carcinoma of the right breast. PROCEDURE: 1. Right modified radical mastectomy. SURGEON: Segun King MD. RELAY MOTORMAN: None. ANESTHESIA: General laryngeal mask anesthesia. INDICATION: The patient is a 77-year-old female who on routine mammography was found to have a suspicious lesion. She underwent a sonographically guided needle core biopsy which revealed an invasive carcinoma. Metastatic workup was negative. She received clearance from both her service planner and the ENT surgeon who has operated on her trachea. They both agreed that general anesthesia, preferably under laryngeal mask was low risk. After the risks, benefits and alternatives to mastectomy were discussed with the patient in the presence of her family, right modified radical mastectomy was scheduled and she is admitted today for the same. FINDINGS: No significant pathology was specifically identified within the specimen. There were no large, obviously firm lymph node. PROCEDURE: After adequate general laryngeal mask anesthesia was obtained, the patient was prepped and draped in the usual sterile manner. She was given IV Ancef. A surgical time-out was taken. An elliptical incision was fashioned around the nipple-areolar complex and the biopsy site, first with a marking pen and then the skin was incised with a knife with a sharp knife, dissection down through the skin into the subcutaneous tissue was obtained using electrocautery. The Minda thyroid grasping forceps were then placed on the superior skin edge and the superior flap was taken in the usual manner using electrocautery. Dissection was carried to the edge of the sternum medially, to the clavipectoral fascia superiorly and into the axilla laterally. When this was done, a moist sponge was placed under the superior flap and the inferior flap was taken in a like manner. When this was done, a sponge was placed under the inferior flap. The breast was then dissected free from the pectoralis muscle using sharp dissection and electrocautery. It was taken from lateral to medial until it was essentially off the pectoris. It was brought from medial to lateral inferiorly. At this time, the axillary dissection was performed with the superior margin of the aspect of the axillary vein, the thoracodorsal bundle, the long nerve of Waggoner was identified and left intact posteriorly. Dissection was carried inferiorly and eventually the tissue was removed en bloc. It was sent as the right breast and right axillary contents and sent for pathologic evaluation. The wound was then irrigated copiously with saline. Hemostasis was noted to be adequate. Two 15 Egyptian round drains were placed through the inferior flap, one to the chest wall, one into the axilla. They were sutured in placed with 3-0 Nylon sutures. At this point, the skin edges were approximated with running 3-0 Vicryl sutures. Before the last was tied medially, the wound was irrigated through the incision and aspirated using the drains. The drains were then cut, placed to close to grenade drainage, and the skin edges were approximated with a skin stapler. Sterile pressure dressing was applied. The patient was awakened and taken to the Recovery Room in good and stable condition. Estimated blood loss was approximately 150 to 200 mL. All sponge, needle and instrument counts were correct. \#[id number] [facility]
[2017-08-28] MEDS ORDERED: CEFAZOLIN SODIUM 2 GRAMS IV 50 ML IVPB ONE ×2 (14:29→20:29)
[2017-08-28] MEDS: CEFAZOLIN SODIUM 2 GRAMS IV 2 GM in PREMIX BAG 1 BAG IVPB SCH ×2 (14:48→21:10)
--- NOTE | 2017-08-28 19:05 | PCM.CORE ---
Physician DVT/VTE - Nurse DVT Assessment & Total Each Risk Factor Represents 3 Points: Age over 75 years Each Risk Factor Represents 2 Points: Malignancy (present/past), Major Surgery > 45 minutes Each Risk Factor is 1 Point: Obesity (BMI >25) DVT Assessment Score: 8 - 5 or more Very High Risk Treatments: Early Ambulation *, Sequential Compression Device Pharmacological: Enoxaparin 40mg SQ Daily
[2017-08-28] MEDS: ASPIRIN EC 81 MG TAB PO SCH (21:13)
[2017-08-28] MEDS: CHOLECALCIFEROL 2,000 IU TAB PO SCH (21:13)
[2017-08-28] MEDS: MONTELUKAST 10 MG TAB PO SCH (21:14)
[2017-08-28] MEDS: CARVEDILOL 3.125 MG TAB PO SCH (21:17)
--- NOTE | 2017-08-28 22:56 | CONS ---
DATE OF CONSULTATION: 08/28/17 SUPERVISING PHYSICIAN: Lai Medellin M.D. REFERRING PHYSICIAN: Segun King M.D. REASON FOR CONSULTATION: Right modified radical mastectomy. HISTORY OF PRESENT ILLNESS: Ms. Villegas is a 77 year-old female patient who has had an abnormal mammogram and noted to have a mass in the right breast. She had undergone sonography-guided needle cone biopsy that revealed invasive carcinoma. Metastatic workup was completed and was showing to be negative. The patient had a right modified radical mastectomy performed by Dr. King today on admission. She tolerated surgery well and was seen in the immediate postoperative state, and will be followed through admission as medically necessary. She does have a history of diabetes mellitus, cardiovascular disease and hypertension. She was seen in the immediate postoperative state in stable condition. PAST MEDICAL HISTORY: 1. Congestive heart failure first diagnosed in 2014 secondary to myocardial infarction 2. History of myocardial infarction with an occluded LAD and requiring assistance with a balloon pump secondary to cardiogenic shock in April 2015. 3. Coronary artery disease. 4. Stress fracture of the second proximal metatarsal in 2002. 5. Transverse fracture of the inferior aspect of the left patella in 2016. 6. Osteopenia. 7. Cervical spine stenosis. 8. Type 2 diabetes mellitus, insulin-dependent diabetic complicated by gastroparesis. 9. Depression on Celexa and Paxil. 10. Obstructive sleep apnea. 11. Congestive heart failure. 12. Grade 2 diastolic dysfunction with last echocardiogram with last echocardiogram on 08/12/15 with an ejection fraction of 55%. 13. Erosive gastritis by history with esophageal strictures. 14. Hypothyroidism. PAST SURGICAL HISTORY: 1. Tonsillectomy. 2. Rhinoscopy and bronchoscopy with removal of tissues in trachea balloon dilation in 2015. 3. Echocardiogram in July 2015 with grade 2 diastolic dysfunction with an ejection fraction of 55%. HOME MEDICATIONS: 1. Humalog sliding scale. 2. Lantus solostar 24 units every AM. 3. Effexor 75 mg daily. 4. Prilosec [id number] 20 mg tablet daily. 5. Singulair 10 mg at bedtime. 6. Cozaar 25 mg daily. 7. Synthroid 75 mcg daily. 8. Eplerenone 25 mg daily. 9. Docusate 250 mg as needed. 10. Zetia 10 mg daily. 11. Plavix 75 mg daily. 12. Coreg 6.25 mg twice daily. 13. Aspirin 81 mg at bedtime. 14. Lasix 20 mg b.i.d. 15. Vitamin D3 1,000 units at bedtime. 16. Nitrostat as needed. ALLERGIES: CELEBREX AND STATINS. FAMILY HISTORY: Father at age 78 from ruptured aneurysm. Mother at age 81 secondary to lung cancer. She was a smoker with cardiovascular disease. 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 She has never smoked tobacco. She does not drink alcohol. She resides in [place], [place] and is . PHYSICAL EXAMINATION: VITAL SIGNS: Temperature 98.4, pulse 84, blood pressure 129/69, respirations 18 , satting 96% on room air. Admission weight was 90.7 kg. GENERAL: The patient is seen immediately from recovery. She appeared to be in no acute distress, comfortable. She was alert, well hydrated, well nourished. HEENT: Tympanic membranes were clear bilaterally. Oropharynx is pink and moist without any lesions. NECK: Supple, non-tender, full range of motion. No jugular venous distention. CHEST: Dressing is in place overlying the chest wall with a J-P drain with some serosanguinous fluid in it. Breath sounds were diminished throughout but clear. HEART: Tones were diminished but regular rate and rhythm with no appreciable murmurs, gallops, or rubs. ABDOMEN: Soft, non-tender with hypoactive bowel sounds. EXTREMITIES: No clubbing, cyanosis or edema. NEUROLOGIC: She was alert and oriented times three. LABORATORY: Preoperative laboratory showed hemoglobin 11.9, hematocrit 37.2 with white count 5.3, platelet count 226,000. Chemistries showed mild hyponatremia with sodium 132 with potassium 4.4. Renal function showed BUN 15, creatinine 0.73, glucose 445 on preoperative workup, but on admission postoperatively it was 205, calcium preoperatively was 8.8. Urinalysis initially preoperatively showed glucose 250 with blood trace microscopic showed 3 to 5 WBCs, 5 to 10 epithelials, 1+ bacteria. MICROBIOLOGY: There were no microbiology specimens pending. RADIOLOGY: There were no radiographic studies available for review. ASSESSMENT: 1. History of biopsy-proven carcinoma of the right breast requiring right modified radical mastectomy performed by Dr. King. 2. Congestive heart failure with a grade 2 diastolic dysfunction secondary to acute myocardial infarction with last echocardiogram on July 2015 showing an ejection fraction of 55%. 3. Type 2 diabetes mellitus, insulin dependent. 4. Gastroesophageal reflux disease. 5. Hypertension. 6. Significant coronary artery disease. 7. Depression on Celexa and Paxil previously. 8. History of obstructive sleep apnea. PLAN: The patient will be followed through her postoperative phase and closely monitored, and treated as necessary. We will restart her medications back once those have been verified. She is on a DVT prophylaxis as per post surgical protocol. Her Plavix has been held for 5 days. We probably need to reinitiate that in the morning after talking to Dr. King to confirm that we can restart it back. I did start her on Levemir as she was on Lantus. Will monitor her blood sugars and she will be on sliding scale as per protocol. Will defer surgical postoperative treatment and pain management as needed to Dr. King and follow the patient as needed closely with anticipation of discharge as she clinically improves within the next 2 to 3 days depending ultimately on Dr. King's decision for discharge. Until then, will gladly follow the patient and monitor closely and treat appropriately. #[id number] [facility]
[2017-08-29] MEDS ORDERED: CEFAZOLIN SODIUM 2 GRAMS IV 50 ML IVPB ONE (00:54)
[2017-08-29] MEDS ORDERED: LEVOTHYROXINE SODIUM 0.075 MG TAB ONE (00:56)
[2017-08-29] MEDS ORDERED: PANTOPRAZOLE SODIUM TAB 40 MG PO ONE (00:56)
[2017-08-29] MEDS: LACTATED RINGERS 1,000 ML IVS PRN ×2 (01:01→12:18)
[2017-08-29] MEDS: HYDROcodone 5MG/APAP 325MG 1 EA TAB PO PRN ×3 (01:28→21:15)
[2017-08-29] MEDS: CEFAZOLIN SODIUM 2 GRAMS IV 2 GM in PREMIX BAG 1 BAG IVPB SCH (05:07)
[2017-08-29] MEDS: LEVOTHYROXINE SODIUM 0.075 MG TAB PO SCH (06:06)
[2017-08-29] MEDS: PANTOPRAZOLE SODIUM TAB 40 MG PO SCH (06:06)
[2017-08-29] MEDS ORDERED: ENOXAPARIN SODIUM 40 MG/0.4 ML SYG SUBCU ONE (07:54)
[2017-08-29] MEDS ORDERED: INSULIN DETEMIR 100 UNITS/ML PEN SUBCU ONE (07:54)
[2017-08-29] MEDS ORDERED: EZETIMIBE 10 MG TAB ONE (07:54)
[2017-08-29] MEDS ORDERED: VENLAFAXINE XR 75 MG CAP ONE (07:54)
[2017-08-29] MEDS ORDERED: FUROSEMIDE 40 MG TAB ONE (07:54)
[2017-08-29] MEDS ORDERED: LOSARTAN POTASSIUM 25 MG TAB ONE (07:54)
[2017-08-29] MEDS: INSULIN LISPRO 100 UNITS/ML PEN SUBCU SCH ×4 (07:59→21:09)
[2017-08-29] MEDS: VENLAFAXINE XR 75 MG CAP PO SCH (08:01)
[2017-08-29] MEDS: CARVEDILOL 3.125 MG TAB PO SCH ×2 (08:01→21:15)
[2017-08-29] MEDS: EZETIMIBE 10 MG TAB PO SCH (08:01)
[2017-08-29] MEDS: FUROSEMIDE 40 MG TAB PO SCH ×2 (08:01→17:40)
[2017-08-29] MEDS: ENOXAPARIN SODIUM 40 MG/0.4 ML SYG SUBCU SCH (08:01)
[2017-08-29] MEDS: LOSARTAN POTASSIUM 25 MG TAB PO SCH (08:01)
[2017-08-29] MEDS ORDERED: INSULIN DETEMIR 100 UNITS/ML PEN SUBCU SCH (09:00)
[2017-08-29] MEDS ORDERED: DOCUSATE SODIUM 100 MG CAP ONE (20:40)
[2017-08-29] MEDS ORDERED: DOCUSATE SODIUM 100 MG CAP PO SCH ×2 (21:00)
[2017-08-29] MEDS: ASPIRIN EC 81 MG TAB PO SCH (21:14)
[2017-08-29] MEDS: CHOLECALCIFEROL 2,000 IU TAB PO SCH (21:15)
[2017-08-29] MEDS: MONTELUKAST 10 MG TAB PO SCH (21:15)
[2017-08-30] MEDS: PANTOPRAZOLE SODIUM TAB 40 MG PO SCH (06:07)
[2017-08-30] MEDS: LEVOTHYROXINE SODIUM 0.075 MG TAB PO SCH (06:07)
[2017-08-30] MEDS: INSULIN LISPRO 100 UNITS/ML PEN SUBCU SCH ×2 (08:11→11:23)
[2017-08-30] MEDS ORDERED: ALUMINUM & MAGNESIUM HYDROXIDE 30 ML UD PO PRN ×2 (08:34→08:40)
[2017-08-30] MEDS: EZETIMIBE 10 MG TAB PO SCH (08:46)
[2017-08-30] MEDS: FUROSEMIDE 40 MG TAB PO SCH (08:46)
[2017-08-30] MEDS: LOSARTAN POTASSIUM 25 MG TAB PO SCH (08:47)
[2017-08-30] MEDS: ENOXAPARIN SODIUM 40 MG/0.4 ML SYG SUBCU SCH (08:47)
[2017-08-30] MEDS: CARVEDILOL 3.125 MG TAB PO SCH (08:47)
[2017-08-30] MEDS: VENLAFAXINE XR 75 MG CAP PO SCH (08:47)
[2017-08-30] MEDS ORDERED: INSULIN DETEMIR 100 UNITS/ML PEN SUBCU SCH (09:00)
[2017-08-30 10:15] VITALS: O2SAT 98
[2017-08-30 11:22] VITALS: BP 132/71; TEMP 98.1
--- NOTE | 2017-08-30 11:38 | PN ---
SUPERVISING PHYSICIAN: Lai Medellin MD DATE: 08/29/17 SUBJECTIVE: The patient is sitting up in her hospital bed. She is visiting with family and friends. She has no complaints of nausea, vomiting, diarrhea or constipation. She reports she takes 24 units of Lantus at night and I told her we had increased her coverage for her blood sugars and she was concerned that they were higher, although this evening they are much improved. OBJECTIVE: VITAL SIGNS: Afebrile. Heart rate 84. Blood pressure 132/72. Respiratory rate 17. O2 saturation 98% on 2 liters nasal cannula. LUNGS: Essentially clear to auscultation bilaterally. CARDIAC: Regular rate and rhythm. CHEST: She has a dressing in place overlying the chest with VERONICA drains and some serosanguineous fluid in it. ABDOMEN: Soft, nondistended, nontender. Bowel sounds are positive. EXTREMITIES: No cyanosis, clubbing or edema. NEUROLOGIC: Awake, alert and oriented times three. LABORATORY: WBC 8, hemoglobin 10.1, hematocrit 31.3. Sodium 135, potassium 4.5 , chloride 100, carbon dioxide 29, BUN 15, creatinine 0.60. Blood sugars earlier today have been running between 205 and 281. Her evening blood sugar is 147. All other labs and films have been reviewed via the EMR. ASSESSMENT: 1. History of biopsy-proven carcinoma of the right breast requiring right modified radical mastectomy performed by Dr. King. 2. Congestive heart failure with a grade 2 diastolic dysfunction secondary to acute myocardial infarction with last echocardiogram on July 2015 showing an ejection fraction of 55%. 3. Type 2 diabetes mellitus, insulin dependent. 4. Gastroesophageal reflux disease. 5. Hypertension. 6. Significant coronary artery disease. 7. Depression on Celexa and Paxil previously. 8. History of obstructive sleep apnea. PLAN: We will continue present supportive care. We will continue to monitor the postoperative phase and treat as necessary. We will defer the postoperative treatment and pain management per Dr. King. I have increased her sliding scale and she is presently on 20 units of long-acting insulin. She is on 24 at home and we will most likely increase her long-acting in the morning. At this point, she has not been re-started on her Plavix and I will talk to Dr. King tomorrow about re-starting that. Otherwise, we continue to monitor the patient closely and follow as needed. Dr. Medellin is the collaborating physician and available for consultation. #[id number] MTDD
--- NOTE | 2017-08-31 08:42 | DS ---
SUPERVISING PHYSICIAN: Lai Medellin MD DISCHARGE DIAGNOSIS: 1. History of biopsy-proven carcinoma of the right breast requiring right modified radical mastectomy performed by Dr. King, general surgeon, postoperative day 2. 2. Congestive heart failure with a grade 2 diastolic dysfunction secondary to acute myocardial infarction with last echocardiogram on July 2015 showing an ejection fraction of 55%. 3. Type 2 diabetes mellitus, insulin dependent. 4. Gastroesophageal reflux disease. 5. Hypertension. 6. Significant coronary artery disease. 7. Depression on Celexa and Paxil previously. 8. History of obstructive sleep apnea. HISTORY OF PRESENT ILLNESS: This is a 77 year-old female patient who has had an abnormal mammogram and noted to have a mass in the right breast that was suspicious. She had undergone sonography-guided needle cone biopsy that revealed invasive carcinoma. Metastatic workup was completed and was negative. She obtained clearance by her stock blender for general anesthesia. Plavix was stopped 5 days preoperatively. Performed the operative procedure and she was brought to the Medical/Surgical Floor. HOSPITAL COURSE: Postoperatively, the patient had no complications. Her diet was advanced. Her home medications were re-started with the exception of her Plavix. Her vital signs remained stable as well as her lab. Hemoglobin and hematocrit remained stable and postoperatively, hemoglobin was 10.1 and hematocrit was 31.3. Initially, her blood sugars were somewhat high, but she normally takes long-acting insulin of 24 units in the morning and she was given 20 units postoperatively. Her sliding scale insulin was adjusted and her outpatient dosing of her long-acting insulin was increased. Her blood sugar prior to discharge was 99. Dr. King has seen her earlier today and she can be discharged home. DISCHARGE PLAN: The patient will be discharged home in stable condition. Her surgical wound and postoperative care are as per Dr. King's instructions. She was given instructions when to call her doctor as well as special precautions and to followup with Dr. King for any problems or complications should they arise. She is to hold her Plavix until she sees Dr. King on 09/04/17 at 1:30 PM. She is to resume her previous diet, increase her activity as tolerated. DISCHARGE MEDICATIONS: 1. Levothyroxine. 2. Omeprazole. 3. Docusate sodium. 4. Zetia. 5. Low dose aspirin. 6. Losartan. 7. Eplerenone. 8. Singulair. 9. Effexor XR. 10. Nitroglycerin. 11. Furosemide. 12. Vitamin D3. 13. Carvedilol. 14. Carafate. 15. Lantus. 16. Humalog insulin. 17. Hydrocodone. 18. Plavix, although she is to hold Plavix until instructed by Dr. King. Dr. Medellin is the collaborating physician and available for consultation. #[id number] [facility]
== END 2017-08-30 13:34 | disposition home or self-care (01) | DRG 582 ==
LOC: AMB 07:00 → MS 13:05
PROVIDERS: ADMIT Surgery; ATTEND Nurse Practitioner Acute Care
PROC: 0HBT0ZZ Excision of Right Breast, Open Approach (ICD-10-PCS; principal; 2017-08-28 08:31)
DX: C50.911 Malignant neoplasm of unspecified site of right female breast (principal); I50.32 Chronic diastolic (congestive) heart failure; E03.9 Hypothyroidism, unspecified; K21.9 Gastro-esophageal reflux disease without esophagitis; I25.10 Atherosclerotic heart disease of native coronary artery without angina pectoris; I10 Essential (primary) hypertension; J44.9 Chronic obstructive pulmonary disease, unspecified; M85.80 Other specified disorders of bone density and structure, unspecified site; E11.43 Type 2 diabetes mellitus with diabetic autonomic (poly)neuropathy; K31.84 Gastroparesis; F32.9 Major depressive disorder, single episode, unspecified; G47.33 Obstructive sleep apnea (adult) (pediatric); Z79.02 Long term (current) use of antithrombotics/antiplatelets; I25.2 Old myocardial infarction; Z79.4 Long term (current) use of insulin; Z79.82 Long term (current) use of aspirin; Z88.8 Allergy status to other drugs, medicaments and biological substances; Z79.899 Other long term (current) drug therapy

== ENCOUNTER 2017-09-07 19:58 | Emergency (ER) | payer MEDICARE ==
[2017-09-07] MEDS ORDERED: IBUPROFEN 200 MG TAB PO ONE (20:18)
--- NOTE | 2017-09-07 20:49 | RAD ---
Examination: XR CHEST 2 VIEWS dated 09/07/2017 8:18 PM CDT History: fever 4 days postop Comparison: 08/01/2017 Technique: Frontal and lateral views of the chest Findings: There is relative lucency of the right hemithorax secondary to recent mastectomy. The lungs are clear. No pneumothorax or pleural effusion. The cardiomediastinal silhouette is within normal limits. Impression: No acute disease. Electronically signed by: Lai Murray MD 09/07/2017 8:48 PM CDT
[2017-09-07 21:08] VITALS: O2SAT 97
[2017-09-07] MEDS ORDERED: levoFLOXacin 500 MG TAB PO ONE (22:03)
[2017-09-07] MEDS ORDERED: cefTRIAXone SODIUM 1 GM VIAL IM ONE (22:03)
[2017-09-07] MEDS ORDERED: cefTRIAXone SODIUM 1 GM VIAL ONE (22:07)
[2017-09-07] MEDS ORDERED: LIDOCAINE 1% 10 ML VIAL INJ ONE (22:08)
--- NOTE | 2017-09-07 22:12 | ED.PDOC ---
History of Present Illness - General Chief Complaint: Fever Stated Complaint: fever, post mastectomy Time Seen by Provider: 09/07/17 20:00 Source: patient, family Exam Limitations: no limitations - History of Present Illness Initial Comments: the patient is a 77-year-old female recently postop from a right mastectomy. The patient started to develop chills and a low-grade fever just this afternoon. No other symptoms. No cough. No leg pain or swelling. No chest pain. No nausea vomiting or diarrhea. No abdominal pain. She has had no drainage or increased pain from her operative site. No headache. No altered mental status. Timing/Duration: 4-6 hours Severity: mild Improving Factors: nothing Worsening Factors: nothing Associated Symptoms: fever/chills Allergies/Adverse Reactions: Allergies Celecoxib [From Celebrex] Allergy (Verified 02/09/17 11:49) Hives Statins Adverse Reaction (Verified 02/09/17 11:49) Other "Makes me feel bad" Home Medications: Ambulatory Orders Levothyroxine Sodium [Synthroid] 75 mcg PO DAILY 03/04/14 Docusate Sodium 250 mg PO PRN PRN 06/06/15 Omeprazole Magnesium [Prilosec Otc] 20 mg PO DAILY 06/06/15 Aspirin [Aspirin Adult Low Dose] 81 mg PO BEDTIME 03/10/16 Eplerenone 25 mg PO DAILY 03/10/16 Ezetimibe [Zetia] 10 mg PO DAILY 03/10/16 Losartan Potassium [Cozaar] 25 mg PO DAILY 03/10/16 Montelukast [Singulair] 10 mg PO BEDTIME 03/10/16 Venlafaxine Xr [Effexor Xr] 75 mg PO DAILY 07/24/16 Nitroglycerin 0.4 mg Tab [Nitrostat] 1 ea SL Q5MIN PRN 07/05/17 Carvedilol [Coreg] 6.25 mg PO BID 08/22/17 Cholecalciferol [Vitamin D3] 1,000 unit PO BEDTIME 08/22/17 Furosemide [Lasix] 20 mg PO BID 08/22/17 Carafate Suspension 08/28/17 Insulin Glargine [Lantus Solostar] 24 unit SC QAM 08/28/17 Insulin Lispro [Humalog] 0 unit SUBCU AC 08/28/17 HYDROcodone 5MG/APAP 325MG [[place] 5/325] 1 - 2 ea PO Q4H PRN tab 08/30/17 Sulfa/Trimeth 800/160 (Ds) Tab [Bactrim DS Tab] 1 ea PO BID #10 tab 09/07/17 levoFLOXacin [Levaquin] 500 mg PO DAILY #5 tab 09/07/17 Review of Systems - Review of Systems Constitutional: States: fever, malaise EENTM: States: no symptoms reported Respiratory: States: no symptoms reported Cardiology: States: no symptoms reported Gastrointestinal/Abdominal: States: no symptoms reported Genitourinary: States: no symptoms reported Musculoskeletal: States: no symptoms reported Skin: States: no symptoms reported Neurological: States: no symptoms reported Endocrine: States: no symptoms reported All other Systems: No Change from Baseline Past Medical History (General) - Patient Medical History Hx Seizures: No Hx Stroke: No Hx Dementia: No Hx Asthma: No Hx of COPD: No Hx Cardiac Disorders: Yes - [place] 2014 Hx Congestive Heart Failure: No Hx Pacemaker: No Hx Hypertension: Yes Hx Thyroid Disease: Yes Hx Diabetes: Yes - type 1 Hx Gastroesophageal Reflux: Yes Hx Renal Disease: No Hx Cancer: Yes - breast Hx of HIV: No Hx Hepatitis C: No Hx MRSA: No Surgical History: tonsillectomy, other - Vaccination History Hx Tetanus, Diphtheria Vaccination: No Hx Influenza Vaccination: Yes - 2016 Hx Pneumococcal Vaccination: Yes - Social History Hx Tobacco Use: No Hx Chewing Tobacco Use: No Hx Alcohol Use: No Hx Substance Use: No Hx Substance Use Treatment: No Hx Depression: No Hx Physical Abuse: No Hx Emotional Abuse: No Hx Suspected Abuse: No - Female History Patient : No Family Medical History - Family History Mother Living Status: Age at (years of age): 81 Cause of : lung cancer Hx Family Asthma: No Hx Family Congestive Heart Failure: No Hx Family Hypertension: No Hx Family Stroke: No Hx Cardiac Disease: No Hx Family Diabetes: No Hx Family Cancer: Yes - lung Father Living Status: Age at (years of age): 77 Hx Family Asthma: No Hx Family Congestive Heart Failure: No Hx Family Hypertension: No Hx Family Stroke: No Hx Cardiac Disease: No Hx Family Diabetes: No Hx Family Cancer: No Hx Family;Other: aneursym Physical Exam - Physical Exam General Appearance: Alert, Comfortable, No apparent distress Eye Exam: bilateral normal Ears, Nose, Throat: hearing grossly normal, normal ENT inspection, normal pharynx Neck: non-tender, full range of motion, supple Respiratory: chest non-tender - operative site appears to be healing well with minimal erythema and minimal surrounding discomfort. No drainage., no respiratory distress, no accessory muscle use, other - he patient does have some mild left lower lobe rales. Lung guaman are clear otherwise and the patient is moving good air. 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 It is possible that the patient simply has a virus that has been going around town. We will however cover with broad-spectrum antibiotics of Levaquin and Bactrim for the next 5 days. She is to hold her cholesterol medications and vitamins and supplements while she is on the antibiotics. She does need to increase her fluid intake. She needs to follow up with her primary care doctor early next week. She needs to return to the emergency room for any significant worsening. The patient is not hypoxic. There is no evidence of leg swelling or pain to indicate a DVT. Her d-dimer is technically normal when corrected for recent surgical status or her age. Pulmonary embolus is therefore unlikely and additional workup to that and is not warranted at this time. - Results/Orders Results/Orders: Laboratory Tests 09/07/17 09/07/17 09/07/17 21:00 21:00 21:00 WBC 11.9 H RBC 4.21 Hgb 11.2 L Hct 34.5 L MCV 81.9 MCH 26.6 L MCHC 32.5 L RDW 15.4 H Plt Count 247 MPV 11.3 H Absolute Neuts (auto) 8.60 H Absolute Lymphs (auto) 1.40 Absolute Monos (auto) 1.70 H Absolute Eos (auto) 0.10 Absolute Basos (auto) 0.10 Neutrophils % 72.4 Lymphocytes % 11.9 L Monocytes % 14.5 H Eosinophils % 0.6 L Basophils % 0.6 D-Dimer, Quantitative 359 H* Sodium 133 L Potassium 4.0 Chloride 101 Carbon Dioxide 25 Anion Gap 11.0 L BUN 18 Creatinine 0.87 BUN/Creatinine Ratio 20.7 H Random Glucose 97 Serum Osmolality 268.2 L Calcium 8.8 Total Bilirubin < 0.2 L AST 20 ALT 15 Alkaline Phosphatase 80 Serum Total Protein 6.5 Albumin 3.3 Globulin 3.2 Albumin/Globulin Ratio 1.0 L Urine Color Urine Appearance Urine pH Ur Specific [place] Urine Protein Urine Glucose (UA) Urine Ketones Urine Blood Urine Nitrite Urine Bilirubin Urine Urobilinogen Ur Leukocyte Esterase Urine RBC Urine WBC Ur Epithelial Cells Urine Bacteria 09/07/17 21:00 WBC RBC Hgb Hct MCV MCH MCHC RDW Plt Count MPV Absolute Neuts (auto) Absolute Lymphs (auto) Absolute Monos (auto) Absolute Eos (auto) Absolute Basos (auto) Neutrophils % Lymphocytes % Monocytes % Eosinophils % Basophils % D-Dimer, Quantitative Sodium Potassium Chloride Carbon Dioxide Anion Gap BUN Creatinine BUN/Creatinine Ratio Random Glucose Serum Osmolality Calcium Total Bilirubin AST ALT Alkaline Phosphatase Serum Total Protein Albumin Globulin Albumin/Globulin Ratio Urine Color Yellow Urine Appearance Clear Urine pH 8.5 H Ur Specific [place] 1.020 Urine Protein Negative Urine Glucose (UA) Negative Urine Ketones Negative Urine Blood Trace-intact H Urine Nitrite Negative Urine Bilirubin Negative Urine Urobilinogen 0.2 Ur Leukocyte Esterase Negative Urine RBC 0-1 Urine WBC 0-1 Ur Epithelial Cells 0 Urine Bacteria Rare two-view chest x-ray shows no significant infiltrate. flu swab is negative Departure - Departure Clinical Impression: Fever of unknown origin Disposition: Discharge to Home or Self Care Condition: Fair Departure Forms: ED Discharge - Pt. Copy, Patient Portal Self Enrollment Instructions: Fever of Unknown Origin Diet: diabetic diet Activity: increase activity as tolerated Referrals: Jose Gould III, MD [Primary Care Provider] - 1-2 Weeks Prescriptions: levoFLOXacin [Levaquin] 500 mg PO DAILY #5 tab Sulfa/Trimeth 800/160 (Ds) Tab [Bactrim DS Tab] 1 ea PO BID #10 tab Home Medications: Ambulatory Orders Levothyroxine Sodium [Synthroid] 75 mcg PO DAILY 03/04/14 Docusate Sodium 250 mg PO PRN PRN 06/06/15 Omeprazole Magnesium [Prilosec Otc] 20 mg PO DAILY 06/06/15 Aspirin [Aspirin Adult Low Dose] 81 mg PO BEDTIME 03/10/16 Eplerenone 25 mg PO DAILY 03/10/16 Ezetimibe [Zetia] 10 mg PO DAILY 03/10/16 Losartan Potassium [Cozaar] 25 mg PO DAILY 03/10/16 Montelukast [Singulair] 10 mg PO BEDTIME 03/10/16 Venlafaxine Xr [Effexor Xr] 75 mg PO DAILY 07/24/16 Nitroglycerin 0.4 mg Tab [Nitrostat] 1 ea SL Q5MIN PRN 07/05/17 Carvedilol [Coreg] 6.25 mg PO BID 08/22/17 Cholecalciferol [Vitamin D3] 1,000 unit PO BEDTIME 08/22/17 Furosemide [Lasix] 20 mg PO BID 08/22/17 Carafate Suspension 08/28/17 Insulin Glargine [Lantus Solostar] 24 unit SC QAM 08/28/17 Insulin Lispro [Humalog] 0 unit SUBCU AC 08/28/17 HYDROcodone 5MG/APAP 325MG [[place] 5/325] 1 - 2 ea PO Q4H PRN tab 08/30/17 Sulfa/Trimeth 800/160 (Ds) Tab [Bactrim DS Tab] 1 ea PO BID #10 tab 09/07/17 levoFLOXacin [Levaquin] 500 mg PO DAILY #5 tab 09/07/17 Additional Instructions: the patient is a 77-year-old female who has recently undergone a mastectomy now presenting less than a week after with a fever of unknown origin. It is possible that the patient simply has a virus that has been going around town. We will however cover with broad-spectrum antibiotics of Levaquin and Bactrim for the next 5 days. She is to hold her cholesterol medications and vitamins and supplements while she is on the antibiotics. She does need to increase her fluid intake. She needs to follow up with her primary care doctor early next week. She needs to return to the emergency room for any significant worsening.
[2017-09-07 22:28] VITALS: BP 112/67; TEMP 99
== END 2017-09-07 22:28 | disposition home or self-care (01) ==
LOC: ER 19:58
DX: R50.9 Fever, unspecified (principal); I25.2 Old myocardial infarction; E10.9 Type 1 diabetes mellitus without complications; Z79.4 Long term (current) use of insulin; C50.919 Malignant neoplasm of unspecified site of unspecified female breast; Z90.11 Acquired absence of right breast and nipple; Z88.8 Allergy status to other drugs, medicaments and biological substances; Z79.899 Other long term (current) drug therapy
CPT/HCPCS: 36415; 71020; 80053; 81001; 85025; 85379; 87040; 87502; J0696

== ENCOUNTER → 2017-09-14 | Outpatient (CLI) | payer MEDICARE ==
--- NOTE | 2017-09-14 19:04 | US ---
EXAM DESCRIPTION: Venous,Lower Extremity LT CLINICAL HISTORY: PHLEBITIS AND THROMBOPHLEBITIS OF UNSPECIFIED DEEP VESSELS OF [place] COMPARISON: None Available. TECHNIQUE: Two -dimensional and doppler sonographic evaluation of the deep venous system of the left lower extremity. FINDINGS: Doppler evaluation shows normal color flow and normal phasicity and augmentation of the left common femoral vein, femoral vein, popliteal vein, greater saphenous vein, peroneal, and posterior tibial vein. The left lower extremity deep veins showed normal occlusion with transducer pressure. Two-dimensional survey showed no echogenic thrombus within these veins. IMPRESSION: 1. Duplex ultrasound evaluation of the left lower extremity deep venous system showing no evidence of thrombosis or embolism. Electronically signed by: Tyler Krueger MD 09/14/2017 7:03 PM CDT Workstation: [id number]
--- NOTE | 2017-09-14 19:10 | US ---
EXAM DESCRIPTION: Venous,Lower Extremity RT: ULTRASOUND. CLINICAL HISTORY: PHLEBITIS AND THROMBOPHLEBITIS OF UNSPECIFIED DEEP VESSELS OF [place] COMPARISON: Venous lower extremity left deep system ultrasound today. TECHNIQUE: Two -dimensional and doppler sonographic evaluation of the deep venous system of the right lower extremity. FINDINGS: Doppler evaluation shows normal color flow and normal phasicity and augmentation of the right common femoral vein, femoral vein, popliteal vein, greater saphenous vein, peroneal, and posterior tibial vein. The right lower extremity deep veins showed normal occlusion with transducer pressure. Two-dimensional survey showed no echogenic thrombus within these veins. IMPRESSION: 1. Duplex ultrasound evaluation of the right lower extremity deep venous system showing no evidence of thrombosis or embolism. Electronically signed by: Tyler Krueger MD 09/14/2017 7:08 PM CDT Workstation: [id number]
== END | disposition home or self-care (01) ==
LOC: US 09:53
PROVIDERS: ATTEND Family Medicine
DX: R60.9 Edema, unspecified (principal); I80.201 Phlebitis and thrombophlebitis of unspecified deep vessels of right lower extremity; I80.202 Phlebitis and thrombophlebitis of unspecified deep vessels of left lower extremity; M79.661 Pain in right lower leg; M79.662 Pain in left lower leg

== ENCOUNTER → 2017-11-08 | Outpatient (CLI) | payer MEDICARE | END | disposition home or self-care (01) | LOC: GMAL 11:25 | PROVIDERS: ATTEND Family Medicine | DX: D51.3 Other dietary vitamin B12 deficiency anemia (principal); E55.9 Vitamin D deficiency, unspecified ==

== ENCOUNTER → 2017-11-15 | Outpatient (CLI) | payer MEDICARE | END | disposition home or self-care (01) | LOC: GMAL 15:15 | PROVIDERS: ATTEND Family Medicine | DX: D53.9 Nutritional anemia, unspecified (principal) ==

== ENCOUNTER → 2018-02-13 | Outpatient (CLI) | payer MEDICARE | LOC: GMAL 12:14 | PROVIDERS: ATTEND Family Medicine | DX: D53.9 Nutritional anemia, unspecified (principal) ==

== ENCOUNTER → 2018-05-18 | Outpatient (CLI) | payer MEDICARE ==
--- NOTE | 2018-05-18 17:24 | MRI ---
EXAM DESCRIPTION: Cervical Spine: MRI. CLINICAL HISTORY: M54.2 COMPARISON: None. TECHNIQUE: Multiplanar MRI, multiple sequences, non-contrast High-field. FINDINGS: C3-4: Disc desiccation and minimal disc space loss. Bilateral Modic type III endplate reactive changes with anterior disc bulging and endplate ridging. Posterior disc bulge with osteophytes 4 mm compressing the cord with central cord prior T2 signal edema and moderate central canal stenosis. Bilateral mild to moderate neural foraminal narrowing. Posterior flavum ligament hypertrophy. Bilateral facet arthrosis. Marrow edema in the inferior C3 vertebral body abutting the endplate. C4-5: Moderate disc space loss and disc desiccation. Anterior disc bulging and endplate ridging. Posterior broad-based disc osteophyte bulge abutting the cord with moderate canal narrowing. Posterior moderate neural foraminal narrowing. Minimal left facet arthrosis. C5-6: Disc desiccation and minimal to moderate disc space loss. Schmorl's node inferior C5. Anterior disc bulge and endplate ridging. Posterior broad-based disc bulge abutting the cord. Posterior hypertrophy ligaments abutting the cord. Mild central canal stenosis. Bilateral uncinate spurs. Mild to moderate right neural foraminal narrowing. Moderate left neural foraminal narrowing. Facets negative. C6-7: Disc desiccation and minimal disc space loss. Anterior bulging and endplate ridging. Posterior tiny disc bulge and osteophytes. Mild canal narrowing. Bilateral mild neural foraminal narrowing. Facets negative. T1-2 disc desiccation and minimal posterior bulge. Facets are negative. Canal and foramina are patent. Normal signal in the remaining discs with no bulging. Disc spaces preserved. Canal and neural foramina are patent. Facets negative. Spinal alignment lack of lordosis. No significant scoliosis. No cord compression or cord edema. Atlantoaxial joint is minimally hypertrophied.. Base of the cerebellar tonsils is above the foramen magnum. Paravertebral soft tissues negative.. Vertebral bodies are not compressed at any level. Normal marrow signal in the remaining vertebral bodies and the posterior elements. IMPRESSION: 1. Question of spondylitis inferior C3 endplate. Posterior C3-4 disc broad-based herniation with spurs impressing the cord with cord edema and moderate central canal stenosis. Flavum ligament hypertrophy. 2. Posterior broad-based disc and osteophyte complex at C4-5 abutting the cord. Moderate canal and bilateral neural foraminal narrowing. 3. Mild central canal stenosis at C5-6 due to bulging disc and spurs and posterior ligament hypertrophy. Moderate left neural foraminal narrowing. 4. Tiny posterior disc bulge C6-7 with mild canal narrowing. Electronically signed by: Tyler Krueger MD 05/18/2018 5:23 PM CDT
== END ==
LOC: MRI 10:00
PROVIDERS: ATTEND Family Medicine
DX: M50.21 Other cervical disc displacement, high cervical region (principal); M50.222 Other cervical disc displacement at C5-C6 level; M50.223 Other cervical disc displacement at C6-C7 level

== ENCOUNTER → 2018-06-05 | Outpatient (CLI) | payer MEDICARE | LOC: GMAL 11:12 | PROVIDERS: ATTEND Family Medicine | DX: R53.83 Other fatigue (principal); E55.9 Vitamin D deficiency, unspecified ==

== ENCOUNTER 2018-08-28 22:28 | Emergency (ER) | payer MEDICARE ==
--- NOTE | 2018-08-28 22:53 | ED.PDOC ---
History of Present Illness - General Chief Complaint: Trauma Stated Complaint: Left knee and l wrist pain Time Seen by Provider: 08/28/18 22:35 Source: patient Exam Limitations: no limitations - History of Present Illness Initial Comments: PT CAUGHT HER TOE, TRIPPED AND FELL. C/O PAIN TO L WRIST, L KNEE, HIT HER HEAD WITH NO LOC. Severity: mild Improving Factors: nothing Worsening Factors: nothing Associated Symptoms: denies symptoms Allergies/Adverse Reactions: Allergies Celecoxib [From Celebrex] Allergy (Verified 02/09/17 11:49) Hives Statins Adverse Reaction (Verified 02/09/17 11:49) Other "Makes me feel bad" Home Medications: Ambulatory Orders Levothyroxine Sodium [Synthroid] 75 mcg PO DAILY 03/04/14 Docusate Sodium 250 mg PO PRN PRN 06/06/15 Omeprazole Magnesium [Prilosec Otc] 20 mg PO DAILY 06/06/15 Aspirin [Aspirin Adult Low Dose] 81 mg PO BEDTIME 03/10/16 Eplerenone 25 mg PO DAILY 03/10/16 Ezetimibe [Zetia] 10 mg PO DAILY 03/10/16 Losartan Potassium [Cozaar] 25 mg PO DAILY 03/10/16 Montelukast [Singulair] 10 mg PO BEDTIME 03/10/16 Venlafaxine Xr [Effexor Xr] 75 mg PO DAILY 07/24/16 Nitroglycerin 0.4 mg Tab [Nitrostat] 1 ea SL Q5MIN PRN 07/05/17 Carvedilol [Coreg] 6.25 mg PO BID 08/22/17 Cholecalciferol [Vitamin D3] 1,000 unit PO BEDTIME 08/22/17 Furosemide [Lasix] 20 mg PO BID 08/22/17 Carafate Suspension 08/28/17 Insulin Glargine [Lantus Solostar] 24 unit SC QAM 08/28/17 Insulin Lispro [Humalog] 0 unit SUBCU AC 08/28/17 HYDROcodone 5MG/APAP 325MG [[place] 5/325] 1 - 2 ea PO Q4H PRN tab 08/30/17 Sulfa/Trimeth 800/160 (Ds) Tab [Bactrim DS Tab] 1 ea PO BID #10 tab 09/07/17 levoFLOXacin [Levaquin] 500 mg PO DAILY #5 tab 09/07/17 Clopidogrel Bisulfate [Plavix] 08/28/18 Acetaminophen W/ Codeine [Tylenol W/ CODEINE #3] 1 ea PO Q6HR PRN #24 08/29/18 Review of Systems - Review of Systems Constitutional: Denies: chills, fever EENTM: Denies: blurred vision Respiratory: Denies: short of breath Cardiology: Denies: chest pain, palpitations, syncope Gastrointestinal/Abdominal: Denies: nausea, vomiting Genitourinary: States: no symptoms reported Musculoskeletal: States: other - PAIN TO L KNEE AND L WRIST. . Denies: back pain, neck pain Skin: States: other - ABRASIONS TO KNEE, MILD SWELLING L WRIST. Neurological: Denies: numbness, weakness Endocrine: States: no symptoms reported Hematologic/Lymphatic: States: no symptoms reported Past Medical History (General) - Patient Medical History Hx Seizures: No Hx Stroke: No Hx Dementia: No Hx Asthma: No Hx of COPD: No Hx Cardiac Disorders: Yes - [place] 2014 Hx Congestive Heart Failure: No Hx Pacemaker: No Hx Hypertension: Yes Hx Thyroid Disease: Yes Hx Diabetes: Yes - type 1 Hx Gastroesophageal Reflux: Yes Hx Renal Disease: No Hx Cancer: Yes - breast Hx of HIV: No Hx Hepatitis C: No Hx MRSA: No - Vaccination History Hx Tetanus, Diphtheria Vaccination: No Hx Influenza Vaccination: Yes - 2016 Hx Pneumococcal Vaccination: Yes - Social History Hx Tobacco Use: No Hx Chewing Tobacco Use: No Hx Alcohol Use: No Hx Substance Use: No Hx Substance Use Treatment: No Hx Depression: No Hx Physical Abuse: No Hx Emotional Abuse: No Hx Suspected Abuse: No - Female History Patient : No Family Medical History - Family History Mother Living Status: Age at (years of age): 81 Cause of : lung cancer Hx Family Asthma: No Hx Family Congestive Heart Failure: No Hx Family Hypertension: No Hx Family Stroke: No Hx Cardiac Disease: No Hx Family Diabetes: No Hx Family Cancer: Yes - lung Father Living Status: Age at (years of age): 77 Hx Family Asthma: No Hx Family Congestive Heart Failure: No Hx Family Hypertension: No Hx Family Stroke: No Hx Cardiac Disease: No Hx Family Diabetes: No Hx Family Cancer: No Hx Family;Other: aneursym Physical Exam - Physical Exam General Appearance: Alert, No apparent distress Eye Exam: bilateral normal Ears, Nose, Throat: hearing grossly normal, other - HEAD NC/AT, Neck: non-tender, full range of motion, supple Respiratory: lungs clear, normal breath sounds Cardiovascular/Chest: regular rate, rhythm, no murmur Gastrointestinal/Abdominal: normal bowel sounds, non tender, soft Back Exam: normal inspection, no CVA tenderness, no vertebral tenderness Extremity: other - MILD SWELLING L WRIST PROXIMAL TO THUMB, NO SIGNIFICANT SNUFF BOX TTP, NVI, ABRASION L KNEE, NO EFFUSION, MILD TTP LAT ASPECT, NO INSTABILITY Neurologic: no motor/sensory deficits, alert, normal mood/affect Skin Exam: warm/dry, other - DIFFUSE ECCHYMOTIC AREAS UPPER EXTREMITIES C/W PLAVIX USE Lymphatic: no adenopathy Progress - Progress Progress: 08/29/18 00:15 C/O PAIN AFTER SPLINT APPLICATION, SPLINT APPROPRIATE, REMAINS NVI, GOOD CAP REFILL, KIMBERLEY LOOSENED AND SHE FEELS BETTER. - EKG/XRAY/CT XRAY: WRIST, NON DISPLACED, COMMINUTED INTRAARTICULAR DISTAL RADIUS FX. - OA, LEON CT: HEAD, LEON Procedures - Splinting Left Arm Hand-Made Type: orthoglass Splint: sugar-tong Pre-Proc Neuro Vasc Exam: normal Post-Proc Neuro Vasc Exam: normal Progress: APPLIED BY MYSELF Departure - Departure Clinical Impression: Distal radius fracture, left Qualifiers: Encounter type: initial encounter Fracture type: closed Fracture morphology: other intra-articular Qualified Code(s): S52.572A - Other intraarticular fracture of lower end of left radius, initial encounter for closed fracture Contusion of knee, left Qualifiers: Encounter type: initial encounter Qualified Code(s): S80.02XA - Contusion of left knee, initial encounter ICD-10 Supporting Text: TRAUMATIC, COMMINUTED, INTRA ARTICULAR, NON DISPLACED, NON ANGULATED DISTAL RADIUS FX. (RESTORATIVE CARE) Time of Disposition: 00:03 Disposition: Discharge to Home or Self Care Condition: Excellent Departure Forms: ED Discharge - Pt. Copy, Patient Portal Self Enrollment Instructions: Radius Fracture Referrals: Jose Gould III, MD [Primary Care Provider] - 1-2 Weeks Prescriptions: Acetaminophen W/ Codeine [Tylenol W/ CODEINE #3] 1 ea PO Q6HR PRN #24 PRN Reason: Pain Home Medications: Ambulatory Orders Levothyroxine Sodium [Synthroid] 75 mcg PO DAILY 03/04/14 Docusate Sodium 250 mg PO PRN PRN 06/06/15 Omeprazole Magnesium [Prilosec Otc] 20 mg PO DAILY 06/06/15 Aspirin [Aspirin Adult Low Dose] 81 mg PO BEDTIME 03/10/16 Eplerenone 25 mg PO DAILY 03/10/16 Ezetimibe [Zetia] 10 mg PO DAILY 03/10/16 Losartan Potassium [Cozaar] 25 mg PO DAILY 03/10/16 Montelukast [Singulair] 10 mg PO BEDTIME 03/10/16 Venlafaxine Xr [Effexor Xr] 75 mg PO DAILY 07/24/16 Nitroglycerin 0.4 mg Tab [Nitrostat] 1 ea SL Q5MIN PRN 07/05/17 Carvedilol [Coreg] 6.25 mg PO BID 08/22/17 Cholecalciferol [Vitamin D3] 1,000 unit PO BEDTIME 08/22/17 Furosemide [Lasix] 20 mg PO BID 08/22/17 Carafate Suspension 08/28/17 Insulin Glargine [Lantus Solostar] 24 unit SC QAM 08/28/17 Insulin Lispro [Humalog] 0 unit SUBCU AC 08/28/17 HYDROcodone 5MG/APAP 325MG [[place] 5/325] 1 - 2 ea PO Q4H PRN tab 08/30/17 Sulfa/Trimeth 800/160 (Ds) Tab [Bactrim DS Tab] 1 ea PO BID #10 tab 09/07/17 levoFLOXacin [Levaquin] 500 mg PO DAILY #5 tab 09/07/17 Clopidogrel Bisulfate [Plavix] 08/28/18 Acetaminophen W/ Codeine [Tylenol W/ CODEINE #3] 1 ea PO Q6HR PRN #24 08/29/18
--- NOTE | 2018-08-28 23:41 | CT ---
EXAM DESCRIPTION: Head CLINICAL HISTORY: FALL HIT HEAD ON PLAVIX COMPARISON: None Available. Technique: Contiguous axial images of the brain were obtained without the administration of intravenous contrast. Coronal and sagittal reformats obtained and reviewed. This exam was performed according to our departmental dose-optimization program which includes use of Automated Exposure Control, adjustment of the mA and/or kV according to patient size and/or use of iterative reconstruction technique. Findings: Brain: No hemorrhage. No territorial infarct. No mass effect. No herniation. Bilateral basal ganglia hypodensities representing old lacunar infarcts or prominent perivascular spaces. Ventricles: Within normal limits for patient's age. Bones: No acute osseous abnormality. Paranasal sinuses: Unremarkable. Mastoid air cells: Unremarkable. Soft tissues: No acute abnormality. IMPRESSION: No acute intracranial abnormalities. Electronically signed by: Micheal Munoz MD 08/28/2018 11:40 PM CDT
--- NOTE | 2018-08-28 23:42 | RAD ---
EXAM DESCRIPTION: Knee,Left 2 or More Views CLINICAL HISTORY: 78 years Female, FALL WITH PAIN COMPARISON: None. FINDINGS: Left knee 3 views Mild medial and patellofemoral compartment narrowing. Meniscal chondrocalcinosis. No fracture or dislocation. Soft tissues are unremarkable. IMPRESSION: No acute abnormality. Mild degenerative changes. Electronically signed by: Micheal Munoz MD 08/28/2018 11:40 PM CDT
--- NOTE | 2018-08-28 23:43 | RAD ---
EXAM DESCRIPTION: Wrist,Left 3 Views CLINICAL HISTORY: 78 years Female, FALL WITH PAIN COMPARISON: None. FINDINGS: Left wrist 3 views Nondisplaced fracture through the distal radius with questionable extension to the articular surface. No other fracture dislocation seen. IMPRESSION: Nondisplaced fracture through the distal radius with questionable extension to the articular surface. Electronically signed by: Micheal Munoz MD 08/28/2018 11:41 PM CDT
[2018-08-29 01:03] VITALS: BP 148/65; TEMP 97.4; O2SAT 99
== END 2018-08-29 01:03 | disposition home or self-care (01) ==
LOC: ER 22:28
DX: S52.572A Other intraarticular fracture of lower end of left radius, initial encounter for closed fracture (principal); S80.02XA Contusion of left knee, initial encounter; I25.2 Old myocardial infarction; I10 Essential (primary) hypertension; E07.9 Disorder of thyroid, unspecified; E10.9 Type 1 diabetes mellitus without complications; K21.9 Gastro-esophageal reflux disease without esophagitis; Z85.3 Personal history of malignant neoplasm of breast; W01.0XXA Fall on same level from slipping, tripping and stumbling without subsequent striking against object, initial encounter; Z79.02 Long term (current) use of antithrombotics/antiplatelets; Z79.899 Other long term (current) drug therapy; Z79.82 Long term (current) use of aspirin; Z88.8 Allergy status to other drugs, medicaments and biological substances; Z79.4 Long term (current) use of insulin

== ENCOUNTER → 2018-08-30 | Outpatient (CLI) | payer MEDICARE ==
--- NOTE | 2018-08-31 12:24 | CT ---
EXAM DESCRIPTION: Lower Extremity CLINICAL HISTORY: KNEE PAIN LT COMPARISON: None. TECHNIQUE: Noncontrast transaxial CT images of the left knee are obtained with coronal and sagittal reconstructed images. This exam was performed according to our departmental dose-optimization program, which includes automated exposure control, adjustment of the mA and/or kV according to patient size and/or use of iterative reconstruction technique . FINDINGS: The osseous structures are diffusely osteopenic. No acute fracture or dislocation is seen. There is moderate narrowing of the medial and mild narrowing of the lateral tibiofemoral compartments with mild medial compartment joint line osteophytes. There is calcification of the meniscal cartilage on the medial and lateral aspect. The ACL and PCL. Intact. No flattening of the weightbearing articular surface is seen. Mild lateral positioning of the patella seen. There is mild narrowing of the lateral patellofemoral. Small suprapatellar joint effusion is seen. No obvious Wheat's cyst. Extensor mechanism is unremarkable. IMPRESSION: Moderate to severe medial and mild lateral tibiofemoral compartment osteoarthritic changes of the left knee are seen. No CT evidence of acute fracture or dislocation of the knee. Mild lateral patellofemoral compartment osteoarthritic changes of the left knee. Small left knee joint effusion. 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 Diffuse osteopenia the osseous structures is seen. Electronically signed by: Vincent Pierre MD 08/31/2018 12:23 PM CDT
== END ==
LOC: MRI 15:05
PROVIDERS: ATTEND Family Medicine
DX: M17.12 Unilateral primary osteoarthritis, left knee (principal); M25.462 Effusion, left knee; M11.262 Other chondrocalcinosis, left knee

== ENCOUNTER → 2019-06-18 | Outpatient (CLI) | payer MEDICARE | LOC: GMAL 14:04 | PROVIDERS: ATTEND Family Medicine | DX: R53.83 Other fatigue (principal) ==

== ENCOUNTER → 2019-07-18 | Outpatient (CLI) | payer MEDICARE ==
--- NOTE | 2019-07-23 17:35 | MAM ---
EXAM DESCRIPTION: 3D Screening BILATERAL : Digital Mammography. CLINICAL HISTORY: 79 years Female ANNUAL SCREENING . Breast cancer right 2017 with mastectomy. No remote family history of breast cancer. Childbirth. Postmenopausal 20+ years. Has taken HRT. Lifetime risk of developing breast cancer (Tyrer-Cuzick model)(%): Calculated due to personal history of breast cancer. COMPARISON: Left breast screening digital tomosynthesis 07/16/2018 and 06/20/2017. TECHNIQUE: Left CC and MLO projection full-field images, digital tomosynthesis mammographic technique. Left digital 2-D full-field MLO images. CAD not available for tomosynthesis or 2-D images. FINDINGS: Left breast parenchymal density pattern is: Heterogeneously dense breast tissue, which may obscure small masses. No skin thickening or nipple retraction. Focal asymmetry and architectural distortion in the posterior third of the left breast not associated with microcalcifications. Margin appears somewhat spiculated on the MLO images. Other solitary microcalcifications. IMPRESSION: BI-RADS CATEGORY: 0 - INCOMPLETE- Need additional imaging evaluation. FOLLOW-UP: Recall for additional imaging: LM full-field left breast tomosynthesis. Targeted left breast ultrasound following the diagnostic examination.. Written communication concerning the IMPRESSION and Follow-up, will be mailed to the patient and referring health care provider. Electronically signed by: Tyler Krueger MD 07/23/2019 5:33 PM CDT
== END ==
LOC: MAMMO 10:00
PROVIDERS: ATTEND Family Medicine
DX: Z12.31 Encounter for screening mammogram for malignant neoplasm of breast (principal)

== ENCOUNTER → 2019-08-09 | Outpatient (CLI) | payer MEDICARE ==
--- NOTE | 2019-08-09 16:17 | US ---
EXAM DESCRIPTION: Diagnostic Mammo,Left (accession [id number]), Breast,Left (accession [id number]): Ultrasound CLINICAL HISTORY: 79 yearsFemaleABNORMAL MAMMOGRAM breast cancer right 2017 with mastectomy. Focal asymmetry and architectural distortion in the posterior third of the left breast COMPARISON: Left breast digital screening tomosynthesis 07/18/2019. TECHNIQUE: Left LM projection full-field images, digital mammographic tomosynthesis technique. Left breast 2-D digital full-field images. LM and CC projections. CAD not available. . Transcutaneous scanning of the left utilizing garnica-scale and Doppler modes. Scanning performed by the partnership development manager and Dr. Krueger. FINDINGS: Left breast parenchymal density pattern is: Heterogeneously dense breast tissue, which may obscure small masses. No skin thickening or nipple retraction the region of interest seen on the prior screening study is not well demonstrated on diagnostic mammographic images today. No focal, stellate mass or density, focal asymmetry , and no suspicious microcalcifications left breast. Ultrasound: Scanning of the posterior left breast 11:00 to 1:00 sectors abutting the chest wall. Mostly fatty echotexture with minimal fibroglandular tissues. No dominant solid mass or distinct cyst. No parenchymal edema or large calcifications. IMPRESSION: Benign exam. BIRAD CATEGORY: 2 BENIGN FINDINGS. RECOMMENDATIONS: FOLLOW UP: Routine digital left breast mammographic screening, one year interval from June 2019. Written communication explaining the IMPRESSION and follow-up, will be mailed to the patient and referring health care provider. The FINDINGS and the FOLLOW-UP plan were reviewed in person with the patient after the examination. According to the [employer], yearly mammograms are recommended starting at age 40 and continuing as long as a woman is in good health. Any breast change noted on a breast self-exam should be reported promptly to the patient's healthcare provider. Breast MRI is recommended for women with an approximately 20-25% or greater lifetime risk of breast cancer, including women with a strong family history of breast or ovarian cancer and women who have been treated for Hodgkin's disease. A negative mammographic report should not delay tissue diagnosis in patients with significant clinical history or physical findings. Extremely dense breast tissue limits the sensitivity of digital mammography. Electronically signed by: Tyler Krueger MD 08/09/2019 4:15 PM CDT
== END ==
LOC: US 10:21
PROVIDERS: ATTEND Family Medicine
DX: R92.8 Other abnormal and inconclusive findings on diagnostic imaging of breast (principal)

== ENCOUNTER → 2019-10-15 | Outpatient (CLI) | payer MEDICARE | END | disposition home or self-care (01) | LOC: GMAL 10:14 | PROVIDERS: ATTEND Family Medicine | DX: D51.3 Other dietary vitamin B12 deficiency anemia (principal); E55.9 Vitamin D deficiency, unspecified ==

== ENCOUNTER 2020-02-06 | Emergency (ER) | payer MEDICARE | END 2020-02-06 16:52 | disposition home or self-care (01) | DX: K52.9 Noninfective gastroenteritis and colitis, unspecified (principal); E86.0 Dehydration; I45.10 Unspecified right bundle-branch block; I25.2 Old myocardial infarction; I10 Essential (primary) hypertension; E07.9 Disorder of thyroid, unspecified; E11.9 Type 2 diabetes mellitus without complications; K21.9 Gastro-esophageal reflux disease without esophagitis; Z85.3 Personal history of malignant neoplasm of breast; Z79.899 Other long term (current) drug therapy; Z88.8 Allergy status to other drugs, medicaments and biological substances; Z79.82 Long term (current) use of aspirin; Z79.4 Long term (current) use of insulin; Z79.02 Long term (current) use of antithrombotics/antiplatelets | CPT/HCPCS: 36416; 80048; 80076; 81001; 82948; 83690; 85025; 87502; 93005; J7030 ==

== ENCOUNTER 2020-11-04 12:05 | Inpatient (IN) | payer MEDICARE ==
[2020-11-04] MEDS ORDERED: HYDROmorphone HCL INJ 2 MG/ML VIAL IV ONE ×2 (12:45→15:30)
[2020-11-04] MEDS ORDERED: ONDANSETRON INJ 4 MG/2 ML VIAL IV ONE (12:46)
--- NOTE | 2020-11-04 12:49 | ED.PDOC ---
History of Present Illness - General Chief Complaint: Lower Extremity Injury Stated Complaint: left hip pain Time Seen by Provider: 11/04/20 12:18 Source: patient Exam Limitations: no limitations - History of Present Illness Occurred: just prior to arrival Pain - Lower Extremity: severe: Left Thigh/Hip Method of Injury: fell Improving Factors: immobilization Worsening Factors: movement Allergies/Adverse Reactions: Allergies Celecoxib [From Celebrex] Allergy (Verified 11/04/20 13:05) Hives Statins Adverse Reaction (Verified 11/04/20 13:05) Other "Makes me feel bad" Home Medications: Ambulatory Orders Levothyroxine Sodium [Synthroid] 75 mcg PO DAILY 03/04/14 Docusate Sodium 100 mg PO PRN PRN 06/06/15 Omeprazole Magnesium [Prilosec Otc] 20 mg PO DAILY 06/06/15 Aspirin [Aspirin Adult Low Dose] 81 mg PO BEDTIME 03/10/16 Eplerenone 25 mg PO DAILY 03/10/16 Ezetimibe [Zetia] 10 mg PO DAILY 03/10/16 Losartan Potassium [Cozaar] 25 mg PO DAILY 03/10/16 Montelukast [Singulair] 10 mg PO BEDTIME 03/10/16 Venlafaxine Xr [Effexor Xr] 75 mg PO DAILY 07/24/16 Carvedilol [Coreg] 6.25 mg PO BID 08/22/17 Cholecalciferol [Vitamin D3] 1,000 unit PO BEDTIME 08/22/17 Furosemide [Lasix] 20 mg PO BID 08/22/17 Insulin Glargine [Lantus Solostar] 22 unit SC QAM 08/28/17 Insulin Lispro [Humalog] 0 unit SUBCU AC 08/28/17 Clopidogrel Bisulfate [Plavix] 75 mg PO DAILY 08/28/18 Cyanocobalamin [Vitamin B-12] 1,000 mcg PO DAILY 11/04/20 Review of Systems - Review of Systems Constitutional: States: no symptoms reported EENTM: States: no symptoms reported Respiratory: States: no symptoms reported Cardiology: States: no symptoms reported Gastrointestinal/Abdominal: States: no symptoms reported Genitourinary: States: no symptoms reported Musculoskeletal: States: no symptoms reported Skin: States: no symptoms reported Neurological: States: no symptoms reported Endocrine: States: no symptoms reported Hematologic/Lymphatic: States: no symptoms reported Unable to Obtain Due To: condition Past Medical History (General) - Patient Medical History Hx Seizures: No Hx Stroke: No Hx Dementia: No Hx Asthma: No Hx of COPD: No Hx Cardiac Disorders: Yes - CT 2014 Hx Congestive Heart Failure: No Hx Pacemaker: No Hx Hypertension: Yes Hx Thyroid Disease: Yes Hx Diabetes: Yes Hx Gastroesophageal Reflux: Yes Hx Renal Disease: No Hx Cancer: Yes - breast Hx of HIV: No Hx Hepatitis C: No Hx MRSA: No - Vaccination History Hx Tetanus, Diphtheria Vaccination: No Hx Influenza Vaccination: Yes - 2016 Hx Pneumococcal Vaccination: Yes - Social History Hx Tobacco Use: No Hx Chewing Tobacco Use: No Hx Alcohol Use: No Hx Substance Use: No Hx Substance Use Treatment: No Hx Depression: No Hx Physical Abuse: No Hx Emotional Abuse: No Hx Suspected Abuse: No - Activities of Daily Living Hospice Agency (if applicable):: None - Female History Patient is a Female of Child Bearing Age (10 -59 yrs old): No Patient : No Family Medical History - Family History Mother Living Status: Age at (years of age): 81 Cause of : lung cancer Hx Family Asthma: No Hx Family Congestive Heart Failure: No Hx Family Hypertension: No Hx Family Stroke: No Hx Cardiac Disease: No Hx Family Diabetes: No Hx Family Cancer: Yes - lung Father Living Status: Age at (years of age): 77 Hx Family Asthma: No Hx Family Congestive Heart Failure: No Hx Family Hypertension: No Hx Family Stroke: No Hx Cardiac Disease: No Hx Family Diabetes: No Hx Family Cancer: No Hx Family;Other: aneursym Physical Exam - Physical Exam General Appearance: Well Developed, Well Groomed, Well Hydrated, Well Nourished, Other - UNCOMFORTABLE, APPEARS IN SOME DISOMFORT Neck: non-tender, full range of motion, supple, normal inspection Cardiovascular/Respiratory: regular rate, rhythm, no M/R/G, normal peripheral pulses, no JVD, normal breath sounds, no respiratory distress Gastrointestinal/Abdominal: non-tender, no organomegaly Back: normal inspection, no CVA tenderness, no vertebral tenderness Thigh/Hip: normal inspection, bone tenderness - LEFT GREATER TROCHANTERIC AREA, deformity - SHORTENING AND EXTERNAL ROTATION OF LEFT LEG Ankle: normal inspection, non-tender, no evidence of injury, normal ROM Foot: normal inspection, non-tender, no evidence of injury Mental Status: alert, oriented x 3 Skin: normal color, warm/dry Progress - Progress Progress: 11/04/20 12:[address] PATIÑO, STATES HE HAS CONTACTED HOSPITALIST TO ADMIT PATIENT. - EKG/XRAY/CT EKG: Sinus, RBBB, no ST T wave changes Departure - Departure Clinical Impression: Intertrochanteric fracture of left femur Qualifiers: Encounter type: initial encounter Fracture type: closed Fracture alignment: nondisplaced Qualified Code(s): S72.145A - Nondisplaced intertrochanteric fracture of left femur, initial encounter for closed fracture Time of Disposition: 21:30 Disposition: Admit Patient Condition: Good Home Medications: Ambulatory Orders Levothyroxine Sodium [Synthroid] 75 mcg PO DAILY 03/04/14 Docusate Sodium 100 mg PO PRN PRN 06/06/15 Omeprazole Magnesium [Prilosec Otc] 20 mg PO DAILY 06/06/15 Aspirin [Aspirin Adult Low Dose] 81 mg PO BEDTIME 03/10/16 Eplerenone 25 mg PO DAILY 03/10/16 Ezetimibe [Zetia] 10 mg PO DAILY 03/10/16 Losartan Potassium [Cozaar] 25 mg PO DAILY 03/10/16 Montelukast [Singulair] 10 mg PO BEDTIME 03/10/16 Venlafaxine Xr [Effexor Xr] 75 mg PO DAILY 07/24/16 Carvedilol [Coreg] 6.25 mg PO BID 08/22/17 Cholecalciferol [Vitamin D3] 1,000 unit PO BEDTIME 08/22/17 Furosemide [Lasix] 20 mg PO BID 08/22/17 Insulin Glargine [Lantus Solostar] 22 unit SC QAM 08/28/17 Insulin Lispro [Humalog] 0 unit SUBCU AC 08/28/17 Clopidogrel Bisulfate [Plavix] 75 mg PO DAILY 08/28/18 Cyanocobalamin [Vitamin B-12] 1,000 mcg PO DAILY 11/04/20
--- NOTE | 2020-11-04 13:19 | RAD ---
Study: Single Frontal Radiograph of the Chest. Indication:TRAUMA Comparison: September 07, 2017 Impression: Mild cardiomegaly. Interstitial markings mildly prominent bilaterally and may reflect progressive interstitial scarring, mild edema, or atypical infection. No pleural effusion or pneumothorax. Hazy increased density in the bilateral mid lungs is felt to relate to overlying breast tissue. Lower cervical fusion construct. Electronically signed by: Jay Richey MD 11/04/2020 1:17 PM [facility]
--- NOTE | 2020-11-04 13:20 | RAD ---
2 radiographs left hip. Single frontal radiograph pelvis. Indication: TRAUMA Comparison: April 09, 2010 Impression: Markedly comminuted intratrochanteric left femoral neck fracture noted with mild impaction. No additional fractures of the pelvis identified. Moderate bilateral hip osteoarthritis. Osteopenia. If this is a new finding, DEXA scan recommended as well as evaluation for possible osteoporosis treatment. Electronically signed by: Jay Richey MD 11/04/2020 1:18 PM [facility]
--- NOTE | 2020-11-04 13:20 | RAD ---
2 radiographs left hip. Single frontal radiograph pelvis. Indication: TRAUMA Comparison: April 09, 2010 Impression: Markedly comminuted intratrochanteric left femoral neck fracture noted with mild impaction. No additional fractures of the pelvis identified. Moderate bilateral hip osteoarthritis. Osteopenia. If this is a new finding, DEXA scan recommended as well as evaluation for possible osteoporosis treatment. Electronically signed by: Jay Richey MD 11/04/2020 1:18 PM [facility]
--- NOTE | 2020-11-04 14:53 | HP ---
SUPERVISING PHYSICIAN: Clay Arzate MD CHIEF COMPLAINT: Left hip pain. HISTORY OF PRESENT ILLNESS: This is a 80-year-old female patient who presented to the Emergency Room after she was carrying a stool in her home and somehow tripped and fell. She is still not quite sure how she fell, but she sustained a traumatic fall to her left hip. She was brought to the Emergency Room. Her left hip x-ray showed her to have a markedly comminuted intertrochanteric left femoral neck fracture noted with mild impaction. Dr. Pardo, orthopedic surgeon, was consulted on the patient and he agreed to do surgical intervention in the morning. She was given pain medications in the Emergency Room and lab was drawn. CBC was unremarkable. Electrolytes and liver function tests were unremarkable. Her glucose was slightly high at 223. Urinalysis was negative. Vital signs were stable. She was admitted to the hospital in stable condition. PAST MEDICAL HISTORY: 1. Congestive heart failure with mild diastolic dysfunction and ejection fraction of 60% per echocardiogram in September of 2020. 2. History of myocardial infarction with cardiogenic shock in 2014. 3. Coronary artery disease. 4. Osteopenia. 5. Cervical spine stenosis. 6. Diabetes mellitus, type 2. 7. Depression. 8. Obstructive sleep apnea. 9. Erosive gastritis with history of esophageal strictures. 10. Hypothyroidism. 11. 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 PAST SURGICAL HISTORY: 1. Tonsillectomy. 2. Right mastectomy after breast cancer. 3. Rhinoscopy and bronchoscopy with removal of tissue in trachea after balloon dilatation in 2015. OUTPATIENT MEDICATIONS: Per the EMR and awaiting verification. ALLERGIES: CELEBREX, STATINS. SOCIAL HISTORY: She lives in [place]. She is . She denies tobacco, ETOH or illicit drug use. REVIEW OF SYSTEMS: Negative except as per history of present illness. PHYSICAL EXAMINATION: VITAL SIGNS: Temperature 97.1, heart rate 72, blood pressure 112/82, respiratory rate 16, O2 saturation 93% on room air. GENERAL: This is a 80-year-old female patient who is lying in her hospital bed. She is in no acute distress. HEENT: Normocephalic, atraumatic. Pupils are equal and reactive. Oropharynx is clear. NECK: Supple without mass. RESPIRATORY: Essentially clear to auscultation bilaterally. CARDIOVASCULAR: Regular rate and rhythm. GASTROINTESTINAL: Abdomen is soft, nondistended, nontender. Bowel sounds are positive. EXTREMITIES: She has some tenderness to her left lateral hip. There is slight external rotation of that left leg. Bilateral pedal pulses are palpable at +2. NEUROLOGIC: Awake, alert and oriented times three. Cranial nerves II-XII are grossly intact as tested. SKIN: Warm, pink and dry. LABORATORY: Labs and films are as per history of present illness. IMPRESSION: 1. Left hip fracture status post same level fall. 2. Congestive heart failure with mild diastolic dysfunction and ejection fraction of 60% per echocardiogram in September of 2020 with no exacerbation. 3. History of respiratory failure after a myocardial infarction and cardiogenic shock in 2014, resulting in damage to the trachea. 4. History of myocardial infarction. 5. Diabetes mellitus, type 2. PLAN: The patient has been admitted to the hospital. She will have surgery per Dr. Pardo tomorrow morning. She will be NPO at midnight. His routine preoperative orders have been initiated. Her home medications have been restarted, but we will hold all but her beta candida in the morning. For now, she will just be on sliding scale insulin per protocol. I have also placed her on Protonix for ulcer prophylaxis. We will restart her DVT prophylaxis postoperatively per Dr. Pardo's instructions. I will also order Dilaudid for pain control. Operative issues will be per Dr. Pavel Pardo. I have ordered lab for in the morning. [id number]
[2020-11-04] MEDS ORDERED: HYDROmorphone HCL INJ 2 MG/ML VIAL ONE (15:21)
[2020-11-04] MEDS ORDERED: GLUCAGON INJ 1 MG VIAL SUBCU PRN (17:05)
[2020-11-04] MEDS ORDERED: DEXTROSE 50% 25 GM/50 ML SYG IV PRN (17:05)
[2020-11-04] MEDS ORDERED: SODIUM CHLORIDE 0.9% (FLUSH) 10 ML SYG IV PRN (17:06)
[2020-11-04] MEDS: IV SET AND CAP CHANGE INJ INJ SCH (17:34)
[2020-11-04] MEDS ORDERED: ONDANSETRON INJ 4 MG/2 ML VIAL IV PRN (20:15)
[2020-11-04] MEDS: HYDROmorphone HCL INJ 2 MG/ML VIAL IV PRN (20:17)
[2020-11-04] MEDS: CARVEDILOL 3.125 MG TAB PO SCH (20:25)
[2020-11-04] MEDS: INSULIN LISPRO 100 UNITS/ML PEN SUBCU SCH (21:19)
[2020-11-05] MEDS ORDERED: PANTOPRAZOLE SODIUM IV 40 MG VIAL ONE (04:45)
[2020-11-05] MEDS: HYDROmorphone HCL INJ 2 MG/ML VIAL IV PRN ×3 (04:54→18:07)
[2020-11-05] MEDS: PANTOPRAZOLE SODIUM IV 40 MG VIAL IV SCH (06:12)
[2020-11-05] MEDS ORDERED: MAGNESIUM SULFATE INJ 1 GM/2 ML VIAL ONE (07:00)
[2020-11-05] MEDS ORDERED: ePHEDrine SULF 50 MG/ML ONE (07:00)
[2020-11-05] MEDS ORDERED: PROPOFOL 200 MG/20 ML VIAL IV ONE (07:00)
[2020-11-05] MEDS ORDERED: LIDOCAINE 1% 10 ML VIAL INJ ONE (07:00)
[2020-11-05] MEDS ORDERED: ceFAZolin SODIUM 1 GM VIAL ONE ×2 (07:00→15:28)
[2020-11-05] MEDS: INSULIN LISPRO 100 UNITS/ML PEN SUBCU SCH ×4 (07:50→21:06)
[2020-11-05] MEDS ORDERED: ceFAZolin SODIUM 2 GM in SODIUM CHLORIDE 0.9% 100ML 100 ML IVPB ONE (08:00)
[2020-11-05] MEDS ORDERED: VANCOMYCIN HCL INJ 1,000 MG in SODIUM CHLORIDE 0.9% 250ML 250 ML IVPB ONE (08:00)
[2020-11-05] MEDS: CARVEDILOL 3.125 MG TAB PO SCH ×2 (09:53→20:27)
[2020-11-05] MEDS ORDERED: MIDAZOLAM INJ 2 MG/2 ML VIAL ONE (11:17)
[2020-11-05] MEDS ORDERED: fentaNYL CITRATE INJ 50 MCG/ML 2 ML AMP ONE ×2 (11:17→14:10)
[2020-11-05] MEDS ORDERED: DEXMEDETOMIDINE HCL 200 MCG/2 ML INJ IV ONE (11:43)
[2020-11-05] MEDS ORDERED: BUPIVACAINE 0.25% INJ 30 ML VIAL INJ ONE (11:49)
[2020-11-05] MEDS ORDERED: LACTATED RINGERS 1,000 ML ONE (11:53)
[2020-11-05] MEDS: BUPIVACAINE 0.5% 30 ML VIAL INJ ONE ×2 (12:57→13:29)
[2020-11-05] MEDS: ceFAZolin SODIUM 1 GM VIAL ONE ×2 (12:58→13:25)
[2020-11-05] MEDS: BUPIVACAINE LIPOSOME 13.3 MG/ML VIAL INJ ONE ×2 (12:58→13:29)
[2020-11-05] MEDS: VANCOMYCIN HCL INJ 1,000 MG VIAL IVPB ONE ×2 (12:59→13:25)
[2020-11-05] MEDS ORDERED: TEMAZEPAM 15 MG CAP PO PRN (13:28)
[2020-11-05] MEDS ORDERED: BISACODYL SUPPOSITORY 10 MG PR PRN (13:28)
[2020-11-05] MEDS ORDERED: MAGNESIUM HYDROXIDE 30 ML UD PO PRN (13:28)
[2020-11-05] MEDS ORDERED: hydrOXYzine HCl 25 MG TAB PO PRN (13:28)
[2020-11-05] MEDS ORDERED: BENZOCAINE-MENTH LOZ (CEPACOL) 1 EA LOZ MT PRN (13:28)
[2020-11-05] MEDS ORDERED: ACETAMINOPHEN 325 MG TAB PO PRN (13:28)
[2020-11-05] MEDS ORDERED: ZOLPIDEM TARTRATE 5 MG TAB PO PRN (13:28)
[2020-11-05] MEDS ORDERED: ALUMINUM & MAGNESIUM HYDROXIDE 30 ML UD PO PRN (13:28)
[2020-11-05] MEDS ORDERED: ceFAZolin SODIUM 1 GM VIAL IM SCH (13:30)
--- NOTE | 2020-11-05 13:53 | RAD ---
EXAM DESCRIPTION: Fluoroscopy Up to 1Hr CLINICAL HISTORY: 80 years Female, INTRAMEDULLARY NAIL LEFT HIP COMPARISON: None. IMPRESSION: Multiple intraoperative fluoroscopic images saved for the benefit of the surgeon. Operative changes to the left hip. Please see procedure report for full details. Fluoroscopy time: 95.5 seconds Fluoroscopic images: 4 Total dose: 22.30 mGy Electronically signed by: Luis Michael MD 11/05/2020 1:51 PM [facility] [place]
[2020-11-05] MEDS ORDERED: ONDANSETRON INJ 4 MG/2 ML VIAL ONE (14:50)
[2020-11-05] MEDS ORDERED: SODIUM CHL 0.9% 50ML MIN-BAG+ 50 ML IVPB ONE (15:28)
[2020-11-05] MEDS: ceFAZolin SODIUM 1 GM in SODIUM CHL 0.9% 50ML MIN-BAG+ 50 ML IVPB SCH (17:32)
[2020-11-05] MEDS ORDERED: VANCOMYCIN HCL INJ 1,000 MG VIAL IVPB ONE (19:25)
[2020-11-05] MEDS ORDERED: ENOXAPARIN SODIUM 30 MG/0.3 ML SYG SUBCU ONE (19:25)
[2020-11-05] MEDS ORDERED: FUROSEMIDE 40 MG TAB ONE (19:25)
[2020-11-05] MEDS ORDERED: SODIUM CHL 0.9% 250ML (AVIVA) 0 ML IVPB ONE (19:25)
--- NOTE | 2020-11-05 19:34 | PN ---
SUPERVISING PHYSICIAN: Clay Arzate MD DATE: 11/05/20 SUBJECTIVE: The patient has just returned from surgery where she had a Gamma nail done to her left hip. There were no problems intraoperatively. At this time, she is lying in bed. She is in no acute distress. She is lethargic postoperatively. OBJECTIVE: VITAL SIGNS: Temperature 98.2, heart rate 78, blood pressure 136/62, respiratory rate 15, O2 saturation 100% on 2 liters nasal cannula. RESPIRATORY: Essentially clear to auscultation bilaterally. CARDIAC: Regular rate and rhythm. GASTROINTESTINAL: Abdomen is soft, nondistended, nontender. Bowel sounds are positive. EXTREMITIES: She has a dressing to her left lateral hip that is dry and intact. NEUROLOGIC: She is very lethargic as she is postoperative. She does open her eyes and follow some simple commands. LABORATORY: Blood sugars have run between 114 and 223. RADIOLOGY: Her operative procedure and films are per the EMR. ASSESSMENT: 1. Left hip fracture status post same level fall status post Gamma nail per Dr. Pavel Pardo, orthopedic surgeon, postoperative day #0. 2. Congestive heart failure with mild diastolic dysfunction and ejection fraction of 60% per echocardiogram in September of 2020 with no exacerbation. 3. History of respiratory failure after a myocardial infarction and cardiogenic shock in 2014, resulting in damage to the trachea. 4. History of myocardial infarction. 5. Diabetes mellitus, type 2. PLAN: We will continue present supportive care. Orthopedic issues will be per Dr. Pavel Pardo, orthopedic surgeon. Physical therapy will begin tomorrow for strengthening and conditioning. We will also plan for physical therapy at discharge. Her home medications have been re-started. She will have an H&H in the morning we will continue to follow the patient and treat as needed. #[id number] [facility]TDD
[2020-11-05] MEDS: MONTELUKAST 10 MG TAB PO SCH (20:27)
[2020-11-05] MEDS: NON-FORMULARY MEDICATION 1 EA MIS (Furosemide [Lasix] 20 MG) PO SCH (20:27)
[2020-11-05] MEDS: ASPIRIN (ENTERIC COATED) 81 MG TAB PO SCH (20:28)
[2020-11-05] MEDS ORDERED: SODIUM CHLORIDE 0.9% 1000ML 1,000 ML IVS ONE (22:08)
[2020-11-05] MEDS ORDERED: SODIUM CHLORIDE 0.9% 250ML 250 ML ONE (22:11)
[2020-11-05] MEDS: VANCOMYCIN HCL INJ 1,000 MG in SODIUM CHLORIDE 0.9% 250ML 250 ML IVPB SCH (22:30)
[2020-11-05] MEDS: ENOXAPARIN SODIUM 30 MG/0.3 ML SYG SUBCU SCH (22:30)
[2020-11-06] MEDS: ceFAZolin SODIUM 1 GM in SODIUM CHL 0.9% 50ML MIN-BAG+ 50 ML IVPB SCH ×2 (01:36→09:49)
[2020-11-06] MEDS ORDERED: LEVOTHYROXINE SODIUM 0.075 MG TAB ONE (04:33)
[2020-11-06] MEDS: CYCLOBENZAPRINE HCL 10 MG TAB PO PRN (05:16)
[2020-11-06] MEDS ORDERED: FUROSEMIDE 40 MG TAB ONE ×2 (05:42→15:54)
[2020-11-06] MEDS: PANTOPRAZOLE SODIUM IV 40 MG VIAL IV SCH (05:52)
[2020-11-06] MEDS ORDERED: LEVOTHYROXINE SODIUM 75 MCG PO SCH (06:30)
[2020-11-06] MEDS: INSULIN LISPRO 100 UNITS/ML PEN SUBCU SCH ×4 (07:26→20:55)
[2020-11-06] MEDS: HYDROcodone 5MG/APAP 325MG 1 EA TAB PO PRN ×3 (08:14→16:57)
[2020-11-06] MEDS: CARVEDILOL 3.125 MG TAB PO SCH ×2 (08:15→20:06)
[2020-11-06] MEDS: NON-FORMULARY MEDICATION 1 EA MIS (Furosemide [Lasix] 20 MG) PO SCH (08:16)
[2020-11-06] MEDS: VENLAFAXINE XR 75 MG CAP PO SCH (08:16)
[2020-11-06] MEDS: LOSARTAN POTASSIUM 25 MG TAB PO SCH (08:16)
[2020-11-06] MEDS: EZETIMIBE 10 MG TAB PO SCH (08:17)
[2020-11-06] MEDS: CLOPIDOGREL 75 MG TAB PO SCH (08:17)
--- NOTE | 2020-11-06 09:57 | PN ---
DATE: 11/06/20 SUBJECTIVE: Ms. Villegas is doing really well and is having no significant pain. OBJECTIVE: Afebrile. Vital signs stable. Dressing is clean, dry and intact. ASSESSMENT: Status post Gamma nailing. PLAN: The plan at this point is for her to begin toe-touch weightbearing today. #[id number] MTDD
--- NOTE | 2020-11-06 10:05 | OP ---
DATE OF PROCEDURE: 11/05/20 PREOPERATIVE DIAGNOSIS: 1. Left intertrochanteric hip fracture. POSTOPERATIVE DIAGNOSIS: 1. Left intertrochanteric hip fracture. PROCEDURE: 1. Left Gamma nail. SURGEON: Pavel Pardo MD. GRADE SETTER: Tyler Gar CST, SA-C. ANESTHESIA: General anesthesia. COMPLICATIONS: None. FINDINGS: Intertrochanteric fracture of the left hip. INDICATION: Ms. Villegas has a history of a fall on the day of presentation. Ms. Villegas had the acute onset of pain in the hip. X-rays revealed a fracture of the intertrochanteric region. We discussed options for her. At this point, she has elected to undergo Gamma nailing. After discussing the risks, benefits and alternatives to that, she gave informed consent. PROCEDURE: The patient was brought to the Operating Room and placed in the supine position. General anesthesia was administered and the patient was placed on the fracture table. The fracture was provisionally reduced under fluoroscopic imaging and after reduction, the leg and hemipelvis were sterilely prepped and draped. An incision was made just proximal to the greater trochanter and dissection was carried through the iliotibial band and down to the greater trochanter. A starting pin was placed and a one-step reamer was used to open the femoral canal. A 125 degree angled Gamma nail was inserted into the canal to the appropriate level. A guide pin was placed from the lateral cortex into the femoral head. The appropriate length compression screw was measured and inserted with the placement guided under direct imaging. Following that, the distal locking screw was drilled, measured, and placed under imaging. The proximal locking screw was placed through the outrigger into the top of the nail and the outrigger removed. The final construct was imaged and the wounds were thoroughly irrigated, followed by closure with Monocryl suture. Sterile dressings were placed. The patient was awoken from anesthesia and taken to the Recovery Room. POSTOPERATIVE PLAN: She will be toe-touch weightbearing beginning on postoperative day #1. #[id number] MTDD
[2020-11-06] MEDS: VANCOMYCIN HCL INJ 1,000 MG in SODIUM CHLORIDE 0.9% 250ML 250 ML IVPB SCH (10:21)
[2020-11-06] MEDS: ENOXAPARIN SODIUM 30 MG/0.3 ML SYG SUBCU SCH ×2 (10:22→22:42)
[2020-11-06] MEDS: EPLERENONE 25 MG PO SCH (10:59)
[2020-11-06] MEDS: FUROSEMIDE 40 MG TAB PO SCH (16:58)
--- NOTE | 2020-11-06 19:22 | PN ---
SUPERVISING PHYSICIAN: Clay Arzate MD DATE: 11/06/20 SUBJECTIVE: The patient has gotten up to a chair today. She had a little bit of difficulty ambulating and felt like she was going to pass out with physical therapy. Otherwise, no major complaints. She has been afebrile. Vital signs are stable. OBJECTIVE: VITAL SIGNS: Temperature 98.2, pulse 92, blood pressure 120/48, respirations 16, oxygen saturation 98% on 2 liters nasal cannula. GENERAL: The patient is resting comfortably in no acute distress. CHEST: Lungs are clear to auscultation bilaterally. HEART: Regular rate and rhythm. ABDOMEN: Soft, nontender. Positive bowel sounds. EXTREMITIES: Dressing remains in place on the left hip and is dry and clean. Distal pulses are strong. Capillary refill brisk. NEUROLOGIC: Alert and oriented times three. LABORATORY: Postoperative hemoglobin 9.5 and hematocrit 28.0. Blood sugars range between 114 and 324. RADIOLOGY: No additional radiographic studies. ASSESSMENT: 1. Left hip fracture status post same level fall status post Gamma nail per Dr. Pavel Pardo, orthopedic surgeon, postoperative day #1. 2. Congestive heart failure with mild diastolic dysfunction and ejection fraction of 60% per echocardiogram in September of 2020 with no exacerbation. 3. History of respiratory failure after a myocardial infarction and cardiogenic shock in 2014, resulting in damage to the trachea. 4. History of myocardial infarction. 5. Diabetes mellitus, type 2. PLAN: We will continue current plan of care. Orthopedic issues are per Dr. Pardo. Physical therapy will continue per protocol. The plan is to probably discharge on Monday, hopefully. She may need to go to a more aggressive rehab. At this point, she is not doing real great with physical therapy, but we will see how she progresses. Until the patient can transition to outpatient management, we will continue to monitor and treat as needed. #[id number] [facility]
[2020-11-06] MEDS: ASPIRIN (ENTERIC COATED) 81 MG TAB PO SCH (20:05)
[2020-11-06] MEDS: MONTELUKAST 10 MG TAB PO SCH (20:05)
[2020-11-07] MEDS ORDERED: LEVOTHYROXINE SODIUM 0.075 MG TAB ONE (04:13)
[2020-11-07] MEDS: PANTOPRAZOLE SODIUM IV 40 MG VIAL IV SCH (06:05)
[2020-11-07] MEDS: LEVOTHYROXINE SODIUM 0.075 MG TAB PO SCH (06:05)
[2020-11-07] MEDS: HYDROcodone 5MG/APAP 325MG 1 EA TAB PO PRN ×2 (07:31→13:41)
[2020-11-07] MEDS: INSULIN LISPRO 100 UNITS/ML PEN SUBCU SCH ×6 (07:31→21:31)
[2020-11-07] MEDS: EZETIMIBE 10 MG TAB PO SCH (09:50)
[2020-11-07] MEDS: VENLAFAXINE XR 75 MG CAP PO SCH (09:50)
[2020-11-07] MEDS: CLOPIDOGREL 75 MG TAB PO SCH (09:50)
[2020-11-07] MEDS ORDERED: SODIUM CHLORIDE 0.9% 500ML 500 ML IVS ONE (10:01)
[2020-11-07] MEDS ORDERED: INSULIN DETEMIR 100 UNITS/ML PEN SUBCU ONE (10:20)
[2020-11-07] MEDS: ENOXAPARIN SODIUM 30 MG/0.3 ML SYG SUBCU SCH ×2 (10:35→22:29)
[2020-11-07] MEDS: INSULIN DETEMIR 100 UNITS/ML PEN SUBCU SCH ×2 (10:36→22:15)
[2020-11-07] MEDS: IV SET AND CAP CHANGE INJ INJ SCH (11:00)
[2020-11-07] MEDS: CARVEDILOL 3.125 MG TAB PO SCH ×2 (13:40→21:31)
[2020-11-07] MEDS: LOSARTAN POTASSIUM 25 MG TAB PO SCH (13:40)
[2020-11-07] MEDS: CYCLOBENZAPRINE HCL 10 MG TAB PO PRN (13:40)
[2020-11-07] MEDS: FUROSEMIDE 40 MG TAB PO SCH ×2 (13:40→17:23)
[2020-11-07] MEDS: EPLERENONE 25 MG PO SCH (13:41)
[2020-11-07] MEDS: ASPIRIN (ENTERIC COATED) 81 MG TAB PO SCH (21:31)
[2020-11-07] MEDS: MONTELUKAST 10 MG TAB PO SCH (21:31)
[2020-11-08] MEDS: PANTOPRAZOLE SODIUM IV 40 MG VIAL IV SCH (05:42)
[2020-11-08] MEDS: LEVOTHYROXINE SODIUM 0.075 MG TAB PO SCH (05:42)
[2020-11-08] MEDS: INSULIN LISPRO 100 UNITS/ML PEN SUBCU SCH ×5 (07:48→20:59)
--- NOTE | 2020-11-08 09:01 | PN ---
SUPERVISING PHYSICIAN: Clay Arzate MD DATE: 11/07/20 SUBJECTIVE: The patient got a little dizzy this morning she she got up with the nurse. After a bolus of fluid, she was actually able to get up with physical therapy, although she is not wanting to participate very well as she has some pain issues. I did discuss with her that we would work on helping her pain but if she does not improve much more in the next 2 days or so, then we are going to have to take into consideration the possibly she will need to go to a longer rehabilitation program and will not able to send to outpatient initially. She is in agreement to that plan of care. OBJECTIVE: VITAL SIGNS: Initially this morning when they got her up, her blood pressure had dropped to 85/44, she was a little dizzy with a pulse of 89. After fluids, tilt vital signs were within normal limits with her sitting, at 129/63, heart rate 100, laying down she was 134/71, heart rate 85, standing she was 153/42, heart rate 100. Oxygen saturation 93% on 2 liter nasal cannula. GENERAL: The patient is resting comfortably in no acute distress. CHEST: Lungs are clear to auscultation bilaterally. HEART: Regular rate and rhythm. ABDOMEN: Soft, nontender. Positive bowel sounds. EXTREMITIES: Dressing remains in place on the left hip and is dry and clean. Distal pulses are strong. Capillary refill brisk. NEUROLOGIC: Alert and oriented times three. LABORATORY: Repeat H&H today shows she did drop hemoglobin a little bit to 8.8 and hematocrit 25.9. Chemistries showing stable creatinine at 1.02, BUN a little elevated at 27 giving a BUN/creatinine of 26.5. Blood sugars have been difficult to control, they have been ranging between 285 and 360 with calcium 8.5. ASSESSMENT: 1. Left hip fracture status post same level fall status post Gamma nail per Dr. Pavel Pardo, orthopedic surgeon, postoperative day #2. 2. Congestive heart failure with mild diastolic dysfunction and ejection fraction of 60% per echocardiogram in September of 2020 with no exacerbation. 3. History of respiratory failure after a myocardial infarction and cardiogenic shock in 2014, resulting in damage to the trachea. 4. History of myocardial infarction. 5. Diabetes mellitus, type 2. PLAN: We will continue with physical therapy evaluation, again, she is hesitant to do anything because it hurts more and it is anticipated. I have explained to her that we need to get her up, she will feel better and if she doesn't progress in a more positive manner in the next 2 or 3 days, that she is probably going to go to inpatient rehab. She voices understanding of this and again, we will certainly address it day to day. In regard to her Singleton catheter, given the fact that she is really having difficulty getting to the bedside chair, I think it would be probably beneficial for at least another 24 hours and at that point, we will certainly work to train and get it out, hopefully Monday morning In regard to her elevated blood sugar, I have increased her coverage with 8 units a.c. and sliding scale plus added long-acting in the form of Levemir b.i.d. We may have to increase this, I am not sure, there are no obvious signs of infection anywhere, white count has been normal. She is not running a fever but will monitor closely. Again, will encourage aggressive pulmonary hygiene and get her up to a chair, work to control her pain and hopefully be able to transition her to outpatient management in the next couple of days. Until then, we will continue to monitor and treat as needed. #[id number] [facility]
[2020-11-08] MEDS: FUROSEMIDE 40 MG TAB PO SCH ×2 (09:41→16:13)
[2020-11-08] MEDS: VENLAFAXINE XR 75 MG CAP PO SCH (09:41)
[2020-11-08] MEDS: EZETIMIBE 10 MG TAB PO SCH (09:41)
[2020-11-08] MEDS: LOSARTAN POTASSIUM 25 MG TAB PO SCH (09:41)
[2020-11-08] MEDS: CARVEDILOL 3.125 MG TAB PO SCH ×2 (09:41→20:14)
[2020-11-08] MEDS: EPLERENONE 25 MG PO SCH (09:42)
[2020-11-08] MEDS: CLOPIDOGREL 75 MG TAB PO SCH (09:42)
[2020-11-08] MEDS: ENOXAPARIN SODIUM 30 MG/0.3 ML SYG SUBCU SCH ×2 (12:15→22:12)
--- NOTE | 2020-11-08 17:42 | PN ---
SUPERVISING PHYSICIAN: Clay Arzate MD DATE: 11/08/20 SUBJECTIVE: The patient is doing okay. She Is still not willing to participate in physical therapy very well today. She has had a little bit of heel pain, I encouraged her that she needs to get out of bed and needs to get to a chair and while she is in bed to keep her heels off the bed. Then we discussed that more than likely she is going to need to go to Inpatient rehab for ongoing rehabilitation because I do not think she is going to be ready to go ad safely. OBJECTIVE: VITAL SIGNS: Temperature 97.8, pulse 75, blood pressure 121/67, respirations 18, oxygen saturation 96% on room air. GENERAL: The patient is resting comfortably in no acute distress. CHEST: Lungs are clear to auscultation bilaterally. HEART: Regular rate and rhythm. ABDOMEN: Soft, nontender. Positive bowel sounds. EXTREMITIES: Dressing remains in place on the left hip and is dry and clean. Distal pulses are strong. Capillary refill brisk. NEUROLOGIC: Alert and oriented times three. LABORATORY: No additional lab studies other than blood sugars. Will check H&H in the morning but her blood sugars have improved a little bit, they are ranging between 76 and 263. ASSESSMENT: 1. Left hip fracture status post same level fall status post Gamma nail per Dr. Pavel Pardo, orthopedic surgeon, postoperative day #3. 2. Congestive heart failure with mild diastolic dysfunction and ejection fraction of 60% per echocardiogram in September of 2020 with no exacerbation. 3. History of respiratory failure after a myocardial infarction and cardiogenic shock in 2014, resulting in damage to the trachea. 4. History of myocardial infarction. 5. Diabetes mellitus, type 2. PLAN: We will continue with orthopedic management per Dr. Pardo's orders and physical therapy. We probably need to get a consultation tomorrow with a Inpatient Rehab as she is not progressing very fast in regards to her physical therapy, she is very hesitant at times but I think she will be good, I have directed physical therapy for encouragement. We will go ahead and check a H&H in the morning as she was a little anemic the last 24 hours. I backed off on her additional a.c. coverage for insulin as her blood sugars seem to have normalized a little bit better now towards more control of her levels. Singleton will remain in place due to her inability to ambulate without difficulty as well as she is on multiple diuretics. Again, we are encouraging good bronchial hygiene. Hopefully, we will be able to transition her to outpatient management or at least to Inpatient Rehab within the next 24-48 hours. Until then, we will continue to monitor and treat as needed.. #[id number] [facility]
[2020-11-08] MEDS ORDERED: BISACODYL TAB 5 MG TAB PO ONE (18:09)
[2020-11-08] MEDS: ASPIRIN (ENTERIC COATED) 81 MG TAB PO SCH (20:14)
[2020-11-08] MEDS: MONTELUKAST 10 MG TAB PO SCH (20:14)
[2020-11-08] MEDS: INSULIN DETEMIR 100 UNITS/ML PEN SUBCU SCH (22:58)
[2020-11-09] MEDS: LEVOTHYROXINE SODIUM 0.075 MG TAB PO SCH (05:53)
[2020-11-09] MEDS: PANTOPRAZOLE SODIUM IV 40 MG VIAL IV SCH (05:53)
[2020-11-09] MEDS: INSULIN LISPRO 100 UNITS/ML PEN SUBCU SCH ×4 (07:26→20:55)
[2020-11-09] MEDS: INSULIN DETEMIR 100 UNITS/ML PEN SUBCU SCH (07:28)
[2020-11-09] MEDS ORDERED: DEXTROSE 50% 25 GM/50 ML SYG IV ONE (07:49)
[2020-11-09] MEDS: EZETIMIBE 10 MG TAB PO SCH (08:39)
[2020-11-09] MEDS: EPLERENONE 25 MG PO SCH (08:39)
[2020-11-09] MEDS: LOSARTAN POTASSIUM 25 MG TAB PO SCH (08:39)
[2020-11-09] MEDS: CARVEDILOL 3.125 MG TAB PO SCH ×2 (08:39→20:14)
[2020-11-09] MEDS: CLOPIDOGREL 75 MG TAB PO SCH (08:39)
[2020-11-09] MEDS: VENLAFAXINE XR 75 MG CAP PO SCH (08:39)
[2020-11-09] MEDS: FUROSEMIDE 40 MG TAB PO SCH ×2 (08:39→17:02)
[2020-11-09] MEDS: ENOXAPARIN SODIUM 30 MG/0.3 ML SYG SUBCU SCH ×2 (11:32→22:20)
--- NOTE | 2020-11-09 15:30 | PN ---
SUPERVISING PHYSICIAN: Hilton Tovar MD DATE: 11/09/20 SUBJECTIVE: The patient had a little hypoglycemic episode this morning, which she recovered well. Her blood sugars are fairly erratic. I have encouraged her to try to eat better. Again, she is not progressing well. She notes she just had not been putting any weight on that leg. I discussed with her inpatient rehab is her best option for going home safely. She is in agreement with that. OBJECTIVE: VITAL SIGNS: Temperature 97.8, pulse 82, blood pressure 121/70, respirations 18, oxygen saturation 95% on room air. GENERAL: The patient is resting comfortably in no acute distress. CHEST: Lungs are clear to auscultation bilaterally. HEART: Regular rate and rhythm. ABDOMEN: Soft, nontender. Positive bowel sounds. EXTREMITIES: Dressing remains in place on the left hip and is dry and clean. Distal pulses are strong. Capillary refill brisk. NEUROLOGIC: Alert and oriented times three. LABORATORY: Hemoglobin stable at 9.3 and hematocrit 27.5. Blood sugars ranging between less than 40 and 359. RADIOLOGY: No additional radiographic studies. ASSESSMENT: 1. Left hip fracture status post same level fall status post Gamma nail per Dr. Pavel Pardo, orthopedic surgeon, postoperative day #4. 2. Congestive heart failure with mild diastolic dysfunction and ejection fraction of 60% per echocardiogram in September of 2020 with no exacerbation. 3. History of respiratory failure after a myocardial infarction and cardiogenic shock in 2014, resulting in damage to the trachea. 4. History of myocardial infarction. 5. Diabetes mellitus, type 2. PLAN: I did discuss with Physical Therapy and her progression and at this point her best option for returning home safely is inpatient rehab. That referral is in place I believe. I discussed plan of care with her and her over the phone. Both are in agreement. We will continue to monitor blood sugars. I have discontinued her additional a.c. coverage and her bedtime Levemir. Hopefully, we will be able to transition her to inpatient rehab once that referral is complete. Until then, we will continue to monitor and treat as needed. #[id number] [facility]
[2020-11-09] MEDS: HYDROcodone 5MG/APAP 325MG 1 EA TAB PO PRN (18:41)
[2020-11-09] MEDS: ASPIRIN (ENTERIC COATED) 81 MG TAB PO SCH (20:14)
[2020-11-09] MEDS: MONTELUKAST 10 MG TAB PO SCH (20:14)
[2020-11-10] MEDS: CYCLOBENZAPRINE HCL 10 MG TAB PO PRN (00:49)
[2020-11-10] MEDS: HYDROcodone 5MG/APAP 325MG 1 EA TAB PO PRN ×2 (00:49→20:18)
[2020-11-10] MEDS ORDERED: PANTOPRAZOLE SODIUM TAB 40 MG PO ONE (02:26)
[2020-11-10] MEDS: PANTOPRAZOLE SODIUM TAB 40 MG PO SCH (06:01)
[2020-11-10] MEDS: LEVOTHYROXINE SODIUM 0.075 MG TAB PO SCH (06:01)
[2020-11-10] MEDS: INSULIN LISPRO 100 UNITS/ML PEN SUBCU SCH ×4 (07:17→21:08)
[2020-11-10] MEDS: EPLERENONE 25 MG PO SCH (08:33)
[2020-11-10] MEDS: CARVEDILOL 3.125 MG TAB PO SCH ×2 (08:33→20:18)
[2020-11-10] MEDS: VENLAFAXINE XR 75 MG CAP PO SCH (08:33)
[2020-11-10] MEDS: FUROSEMIDE 40 MG TAB PO SCH ×2 (08:33→15:54)
[2020-11-10] MEDS: CLOPIDOGREL 75 MG TAB PO SCH (08:33)
[2020-11-10] MEDS: LOSARTAN POTASSIUM 25 MG TAB PO SCH (08:34)
[2020-11-10] MEDS: EZETIMIBE 10 MG TAB PO SCH (08:34)
[2020-11-10] MEDS: ENOXAPARIN SODIUM 30 MG/0.3 ML SYG SUBCU SCH ×2 (10:20→22:30)
--- NOTE | 2020-11-10 17:55 | PN ---
SUPERVISING PHYSICIAN: Hilton Tovar MD DATE: 11/10/20 SUBJECTIVE: The patient is sitting up in a chair. No significant complaints of pain at this time, but she did state she was quite active yesterday. She was pretty sore and could not sleep very well last night due to that. No signs of distress at this time. OBJECTIVE: VITAL SIGNS: Blood pressure 118/81, heart rate 81, respiratory rate 18, temperature 97.1, oximetry 95%. GENERAL: Ms. Villegas is a 80-year-old female in no active distress. NEUROLOGIC: The patient is alert. LUNGS: Clear to auscultation bilaterally. CARDIOVASCULAR: Regular rate and rhythm. Normal S1, S2. ABDOMEN: Soft. Positive bowel sounds. GENITOURINARY: Deferred. EXTREMITIES: Lower extremities with no significant edema. Left hip incision with no signs of infection. ASSESSMENT: 1. Left hip fracture status post Gamma nail, postoperative day #5. 2. Congestive heart failure with no exacerbation. 3. Diabetes mellitus, type 2, which is somewhat uncontrolled. 4. History of myocardial infarction. PLAN: The patient has been accepted to [facility], but cannot go until tomorrow due to bed availability. I will continue her home medications. She will be discharged tomorrow as planned. Continue physical therapy and current medications until that time. I have resumed her AM dose of Levemir due to uncontrolled blood sugars. #[id number] [facility]
[2020-11-10] MEDS: IV SET AND CAP CHANGE INJ INJ SCH (19:34)
[2020-11-10] MEDS: MONTELUKAST 10 MG TAB PO SCH (20:18)
[2020-11-10] MEDS: ASPIRIN (ENTERIC COATED) 81 MG TAB PO SCH (20:18)
[2020-11-11] MEDS: LEVOTHYROXINE SODIUM 0.075 MG TAB PO SCH (05:46)
[2020-11-11] MEDS: PANTOPRAZOLE SODIUM TAB 40 MG PO SCH (05:46)
[2020-11-11] MEDS: INSULIN LISPRO 100 UNITS/ML PEN SUBCU SCH ×4 (08:04→21:05)
[2020-11-11] MEDS: EPLERENONE 25 MG PO SCH (08:07)
[2020-11-11] MEDS: CARVEDILOL 3.125 MG TAB PO SCH ×2 (08:07→21:04)
[2020-11-11] MEDS: EZETIMIBE 10 MG TAB PO SCH (08:07)
[2020-11-11] MEDS: FUROSEMIDE 40 MG TAB PO SCH ×2 (08:07→17:09)
[2020-11-11] MEDS: LOSARTAN POTASSIUM 25 MG TAB PO SCH (08:07)
[2020-11-11] MEDS: CLOPIDOGREL 75 MG TAB PO SCH (08:08)
[2020-11-11] MEDS: VENLAFAXINE XR 75 MG CAP PO SCH (08:08)
[2020-11-11] MEDS: INSULIN DETEMIR 100 UNITS/ML PEN SUBCU SCH (08:08)
[2020-11-11] MEDS: ENOXAPARIN SODIUM 30 MG/0.3 ML SYG SUBCU SCH ×2 (11:41→22:33)
[2020-11-11] MEDS: POLYETHYLENE GLYCOL 3350 17 GM PCKT PO SCH (11:41)
--- NOTE | 2020-11-11 14:23 | DS ---
SUPERVISING PHYSICIAN: Hilton Tovar MD ADMISSION DIAGNOSIS: 1. Left hip fracture status post same level fall. 2. Congestive heart failure with mild diastolic dysfunction with an ejection fraction of 60% with no acute exacerbation. 3. History of respiratory failure after a myocardial infarction and cardiogenic shock in 2014 resulting in damage to the trachea. 4. History of myocardial infarction. 5. Diabetes mellitus, type 2. DISCHARGE DIAGNOSIS: 1. Left hip fracture status post Gamma nail repair. 2. Congestive heart failure with no exacerbation. 3. Diabetes mellitus, type 2 4. History of myocardial infarction. HOSPITAL COURSE: This is a 80-year-old female who was admitted to the hospital on 11/04/20 after she was carrying a stool in her home and somehow tripped and fell. In the Emergency Room, she was found to have a markedly comminuted intertrochanteric left femoral neck fracture with impaction. Dr. Pardo was consulted and agreed to surgically intervene. On 11/05/20, the patient underwent repair of the fracture via left Gamma nail repair. Postoperatively, the patient took quite a bit of time to progress with her physical therapy. In fact, she did not progress well enough to go home alone or even with home health. Therefore, referral to [facility] was obtained. The patient was accepted. Therefore, the patient will be discharged to [facility] today in stable condition. I will continue her current medications that she is getting here. Her glucoses have been a little bit on the high side. Her insulin was adjusted, but she did have an episode of hypoglycemia, so they were resumed back to what she was taking at home. Further adjustments can be done at [facility] by the physicians there. Activity is as per Physical Therapy at [facility]. Diet as per regular diet. She can followup with her primary care physician as well as Dr. Pardo postoperatively in one to two weeks. #[id number] [facility]
[2020-11-11] MEDS: MONTELUKAST 10 MG TAB PO SCH (21:05)
[2020-11-11] MEDS: ASPIRIN (ENTERIC COATED) 81 MG TAB PO SCH (21:05)
[2020-11-11] MEDS: CYCLOBENZAPRINE HCL 10 MG TAB PO PRN (22:37)
[2020-11-11] MEDS ORDERED: HYDROcodone 5MG/APAP 325MG 1 EA TAB PO PRN (22:48)
[2020-11-12] MEDS: PANTOPRAZOLE SODIUM TAB 40 MG PO SCH (05:59)
[2020-11-12] MEDS: LEVOTHYROXINE SODIUM 0.075 MG TAB PO SCH (05:59)
[2020-11-12] MEDS: INSULIN LISPRO 100 UNITS/ML PEN SUBCU SCH ×2 (07:43→11:28)
[2020-11-12] MEDS: EPLERENONE 25 MG PO SCH (08:03)
[2020-11-12] MEDS: EZETIMIBE 10 MG TAB PO SCH (08:04)
[2020-11-12] MEDS: CARVEDILOL 3.125 MG TAB PO SCH (08:04)
[2020-11-12] MEDS: CLOPIDOGREL 75 MG TAB PO SCH (08:05)
[2020-11-12] MEDS: LOSARTAN POTASSIUM 25 MG TAB PO SCH (08:05)
[2020-11-12] MEDS: VENLAFAXINE XR 75 MG CAP PO SCH (08:05)
[2020-11-12] MEDS: INSULIN DETEMIR 100 UNITS/ML PEN SUBCU SCH (08:06)
[2020-11-12] MEDS: POLYETHYLENE GLYCOL 3350 17 GM PCKT PO SCH (08:31)
[2020-11-12] MEDS: FUROSEMIDE 40 MG TAB PO SCH (10:03)
[2020-11-12] MEDS: ENOXAPARIN SODIUM 30 MG/0.3 ML SYG SUBCU SCH (10:28)
[2020-11-12 14:25] VITALS: BP 141/85; TEMP 97.7; O2SAT 96
--- NOTE | 2020-12-02 14:17 | PN ---
SUPERVISING PHYSICIAN: Hilton Tovar MD DATE: 11/12/20 Her discharge was delayed from yesterday to go to [facility]. They were unable to get her transferred yesterday and all discharge paperwork has been done. The patient was actually discharged on 11/11/20, but because she was unable to be transferred to the facility at that time, we are discharging her today. #[id number] [facility]
== END 2020-11-12 15:42 | DRG 481 ==
LOC: ER 12:05 → MS 14:52
PROVIDERS: ADMIT Nurse Practitioner Acute Care; ATTEND Nurse Practitioner
PROC: 0QS734Z Reposition Left Upper Femur with Internal Fixation Device, Percutaneous Approach (ICD-10-PCS; principal; 2020-11-05 11:59)
DX: S72.142A Displaced intertrochanteric fracture of left femur, initial encounter for closed fracture (principal); I50.32 Chronic diastolic (congestive) heart failure; I11.0 Hypertensive heart disease with heart failure; I25.10 Atherosclerotic heart disease of native coronary artery without angina pectoris; I25.2 Old myocardial infarction; Z95.5 Presence of coronary angioplasty implant and graft; E11.65 Type 2 diabetes mellitus with hyperglycemia; E11.649 Type 2 diabetes mellitus with hypoglycemia without coma; E03.9 Hypothyroidism, unspecified; M85.80 Other specified disorders of bone density and structure, unspecified site; F32.9 Major depressive disorder, single episode, unspecified; G47.33 Obstructive sleep apnea (adult) (pediatric); W19.XXXA Unspecified fall, initial encounter; Z79.02 Long term (current) use of antithrombotics/antiplatelets; Z79.4 Long term (current) use of insulin; Y92.009 Unspecified place in unspecified non-institutional (private) residence as the place of occurrence of the external cause; Z85.3 Personal history of malignant neoplasm of breast; Z88.8 Allergy status to other drugs, medicaments and biological substances; Z79.899 Other long term (current) drug therapy

== ENCOUNTER 2020-11-29 21:23 | Emergency (ER) | payer MEDICARE ==
[2020-11-29 21:43] VITALS: TEMP 100.6
--- NOTE | 2020-11-29 22:02 | ED.PDOC ---
History of Present Illness - General Chief Complaint: Fever Stated Complaint: fever at home onset this evening Time Seen by Provider: 11/29/20 21:57 Additional Information: Patient is a 80-year-old female who presents to the ED with her with chief complaint of fever and malaise. Patient sustained a left hip fracture on November 14 and had surgery the next day and went to rehab. Patient has just been released from rehab 3 days ago and notes that patient has no energy at home and continues to get weaker and daughter noted that patient had a fever today. Of note, patient has essentially not been weightbearing since her s urgery she has taken very few steps and has mostly been in bed. Patient denies any specific symptoms and specifically indicates that she does not have a new cough, shortness of breath, chest pain, abdominal pain or dysuria. Patient indicates she just feels weak and fatigued. There are no other complaints at this time. Review of Systems - Review of Systems Constitutional: States: fever, malaise, weakness EENTM: States: no symptoms reported Respiratory: States: no symptoms reported. Denies: cough, short of breath Cardiology: States: no symptoms reported. Denies: chest pain, palpitations Gastrointestinal/Abdominal: States: no symptoms reported. Denies: abdominal pain, nausea, vomiting Genitourinary: States: no symptoms reported. Denies: dysuria Musculoskeletal: States: no symptoms reported. Denies: muscle pain Skin: States: no symptoms reported. Denies: rash Neurological: States: no symptoms reported. Denies: headache All other Systems: Reviewed and Negative Past Medical History (General) - Patient Medical History Hx Seizures: No Hx Stroke: No Hx Dementia: No Hx Asthma: No Hx of COPD: No Hx Cardiac Disorders: Yes - [place] Hx Congestive Heart Failure: No Hx Pacemaker: No Hx Hypertension: Yes Hx Thyroid Disease: Yes Hx Diabetes: Yes Hx Gastroesophageal Reflux: Yes Hx Renal Disease: No Hx Cancer: Yes - breast Hx of HIV: No Hx Hepatitis C: No Hx MRSA: No Surgical History: other - Vaccination History Hx Tetanus, Diphtheria Vaccination: No Hx Influenza Vaccination: Yes - 2016 Hx Pneumococcal Vaccination: Yes - Social History Hx Tobacco Use: No Hx Chewing Tobacco Use: No Hx Alcohol Use: No Hx Substance Use: No Hx Substance Use Treatment: No Hx Depression: No Hx Physical Abuse: No Hx Emotional Abuse: No Hx Suspected Abuse: No - Female History Patient : No Family Medical History - Family History Mother Living Status: Age at (years of age): 81 Cause of : lung cancer Hx Family Asthma: No Hx Family Congestive Heart Failure: No Hx Family Hypertension: No Hx Family Stroke: No Hx Cardiac Disease: No Hx Family Diabetes: No Hx Family Cancer: Yes - lung Father Living Status: Age at (years of age): 77 Hx Family Asthma: No Hx Family Congestive Heart Failure: No Hx Family Hypertension: No Hx Family Stroke: No Hx Cardiac Disease: No Hx Family Diabetes: No Hx Family Cancer: No Hx Family;Other: aneursym Physical Exam - Physical Exam General Appearance: Alert, Ill Appearing, Obese, Other - Patient is very weak and appears to be near-bedbound ENT Exam: pharynx normal Neck: full range of motion, supple, normal inspection Respiratory: chest non-tender, lungs clear, normal breath sounds, no respiratory distress, no accessory muscle use Cardiovascular/Chest: normal peripheral pulses, regular rate, rhythm, no edema, no gallop, no JVD, no murmur Gastrointestinal/Abdominal: normal bowel sounds, non tender, soft, no organomegaly, no pulsatile mass Extremity: non-tender, other - Surgical site at left hip is normal in appearance without any discharge edema erythema or tenderness to palpation. Patient has extremely limited range of motion in that leg and is unable to flex her hip laying in bed more than 15 degrees. 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 I have ordered a CTA chest but patient's GFR is slightly compromised and patient refuses CT even with half dose contrast protocol. Patient indicates when she was in rehab she was receiving Lovenox shots but since she went home she is no longer on anticoagulation. I discussed with patient and that and lieu of CT chest I will begin Lovenox empirically. Patient is Covid negative and her chest x-ray is clear but her oxygen saturation on room air is 94/95%. She has no respiratory distress however. Patient's initial troponin is elevated at 0.45 but her EKG shows no ST segment elevation and she has no chest pain or shortness of breath to suggest active ACS. This may be baseline for patient, and repeating troponin now. 11/30/20 00:51 Patient reassessed and she is feeling better and is very alert at this time. Her repeat troponin has come down and and patient is not having a non-STEMI. Patient's UA suggestive of UTI and I have cultured the urine and will DC patient home with Cipro; this may be the source of patient's fever. Patient has been given cefepime in the ED. I will discharge also with Lovenox and patient will follow-up with her PCP in 1 to 2 days for reevaluation. I have discussed with both her and patient's that she is at high risk for DVT given that she is essentially bedbound and that it is imperative for her to take her Lovenox as prescribed and for her to follow-up with her primary physician for transition on to Coumadin or another anticoagulant as required. indicates the beginning tomorrow (Monday) that home health will be coming out to the house to help daily with patient. Vital signs stable, patient is NAD and her condition is improved and I believe is safe for discharge with outpatient follow-up. Follow- up instructions, discharge instructions and return to ED precautions discussed with patient. Patient voices understanding and willingness to comply with instructions. All laboratory and/or radiographic results have been discussed with the patient, and all questions answered. Patient is happy with plan. Departure - Departure Clinical Impression: Elevated d-dimer, Elevated troponin, Poor mobility UTI (urinary tract infection) Qualifiers: Urinary tract infection type: site unspecified Hematuria presence: without hematuria Qualified Code(s): N39.0 - Urinary tract infection, site not specified Time of Disposition: 00:56 Disposition: Discharge to Home or Self Care Condition: Fair Departure Forms: ED Discharge - Pt. Copy, Patient Portal Self Enrollment Activity: ambulate only with walker, as per physical therapy Referrals: Jose Gould III, MD [Primary Care Provider] - 1-2 Days Prescriptions: Ciprofloxacin HCl [Cipro] 500 mg PO BID #20 tab Enoxaparin Sodium 1 mg/kg [Lovenox 1 mg/kg] 80 mg SUBCU Q12H #30 syr Home Medications: Ambulatory Orders Levothyroxine Sodium [Synthroid] 75 mcg PO DAILY 03/04/14 Docusate Sodium 100 mg PO PRN PRN 06/06/15 Omeprazole Magnesium [Prilosec Otc] 20 mg PO BID 06/06/15 Aspirin [Aspirin Adult Low Dose] 81 mg PO DAILY 03/10/16 Eplerenone 25 mg PO DAILY 03/10/16 Ezetimibe [Zetia] 10 mg PO DAILY 03/10/16 Losartan Potassium [Cozaar] 12.5 mg PO DAILY 03/10/16 Montelukast [Singulair] 10 mg PO BEDTIME 03/10/16 Venlafaxine Xr [Effexor Xr] 75 mg PO DAILY 07/24/16 Carvedilol [Coreg] 6.25 mg PO BID 08/22/17 Cholecalciferol [Vitamin D3] 1,000 unit PO DAILY 08/22/17 Furosemide [Lasix] 20 mg PO BID 08/22/17 Insulin Glargine [Lantus Solostar] 22 unit SC BEDTIME 08/28/17 Insulin Lispro [Humalog] 15 unit SUBCU ACHS 08/28/17 Clopidogrel Bisulfate [Plavix] 75 mg PO DAILY 08/28/18 Cyanocobalamin [Vitamin B-12] 1,000 mcg PO DAILY 11/04/20 Bisacodyl Suppository 10Mg [Dulcolax Suppository 10mg] 1 ea RI DAILY PRN sup 11/11/20 Magnesium Hydroxide [Milk Of Magnesia] 30 ml PO DAILY PRN ud 11/11/20 Polyethylene Glycol 3350 [Miralax] 17 gm PO DAILY pckt 11/11/20 Enoxaparin Sodium 1 mg/kg [Lovenox 1 mg/kg] 80 mg SUBCU Q12H #30 syr 11/30/20 Ciprofloxacin HCl [Cipro] 500 mg PO BID #20 tab 11/30/20
[2020-11-29] MEDS: CEFEPIME 2 GM in SODIUM CHL 0.9% 100ML MINI-BAG 100 ML IVPB ONE (22:28)
[2020-11-29] MEDS: SODIUM CHLORIDE 0.9% 1000ML 1,000 ML IVS ONE (22:29)
[2020-11-29] MEDS: ASPIRIN (CHEWABLE) 81 MG TAB PO ONE (23:20)
--- NOTE | 2020-11-29 23:29 | RAD ---
EXAM: Chest,1 View CLINICAL INDICATION: 72-year-old female with fever. TECHNIQUE: Single view, AP portable chest was obtained. COMPARISON: 11/14/2020. FINDINGS: Unremarkable cardiac and mediastinal silhouette. Heart size is normal. Tortuous atherosclerotic thoracic aorta. Lungs are clear without focal opacity, pneumothorax or pleural effusions. Reidentification of diffuse interstitial prominence raising the possibility of interstitial lung disease, scarring edema or atypical/viral infectious process. The visualized bones are within normal limits. Incompletely visualized cervical spine hardware. IMPRESSION: 1. No discrete focal opacity. 2. Reidentification of diffuse interstitial prominence raising the possibility of interstitial lung disease, scarring edema or atypical/viral infectious process. Electronically signed by: Lelia Leo MD 11/29/2020 11:27 PM [facility]
[2020-11-29] MEDS ORDERED: ENOXAPARIN SODIUM 80 MG/0.8 ML SYG SUBCU ONE (23:46)
[2020-11-30 00:05] VITALS: O2SAT 98
[2020-11-30] MEDS: ALUM & MAG HYDROX-SIMETHICONE 30 ML, LIDOCAINE VISCOUS 2% 15 ML PO ONE ×2 (00:08)
[2020-11-30 01:12] VITALS: BP 114/52
== END 2020-11-30 01:05 | disposition home or self-care (01) ==
LOC: ER 21:23
DX: N39.0 Urinary tract infection, site not specified (principal); R79.89 Other specified abnormal findings of blood chemistry; I25.2 Old myocardial infarction; E07.9 Disorder of thyroid, unspecified; I10 Essential (primary) hypertension; E11.9 Type 2 diabetes mellitus without complications; K21.9 Gastro-esophageal reflux disease without esophagitis; Z85.3 Personal history of malignant neoplasm of breast; Z20.822 Contact with and (suspected) exposure to COVID-19

== ENCOUNTER → 2020-12-11 | Outpatient (CLI) | payer MEDICARE ==
--- NOTE | 2020-12-13 09:16 | RAD ---
EXAM: Hip,Left 2 Views CLINICAL HISTORY: HIP PAIN COMPARISON STUDY: Left hip x-rays from November 04, 2020 TECHNICAL: 2 x-ray images of the left hip. FINDINGS: Left hip fracture has been internally fixed. The fracture line is lucent and not yet fused. The medial cortices are 10 mm displaced. No dislocation of the left hip. The visible pelvic ring is intact. IMPRESSION: Internally fixed left hip fracture. Electronically signed by: Ezequiel Harris MD 12/13/2020 9:15 AM [facility]
== END ==
LOC: RAD 09:56
PROVIDERS: ATTEND Orthopaedic Surgery
DX: S72.92XG Unspecified fracture of left femur, subsequent encounter for closed fracture with delayed healing (principal); Z98.890 Other specified postprocedural states

== ENCOUNTER → 2020-12-29 | Outpatient (CLI) | payer MEDICARE | LOC: YCHH 09:04 | PROVIDERS: ATTEND Family Medicine | DX: E11.9 Type 2 diabetes mellitus without complications (principal); I10 Essential (primary) hypertension; E78.5 Hyperlipidemia, unspecified; I50.22 Chronic systolic (congestive) heart failure; D64.9 Anemia, unspecified; I25.10 Atherosclerotic heart disease of native coronary artery without angina pectoris ==

== ENCOUNTER → 2021-01-08 | Outpatient (CLI) | payer MEDICARE ==
--- NOTE | 2021-01-08 10:56 | RAD ---
EXAM DESCRIPTION: Femur,Left CLINICAL HISTORY: 80 years Female, DISPLACED FRACTURE COMPARISON: November 04, 2020 FINDINGS: Internal fixation of the proximal femur including fracture at the level of the greater trochanter and base of the neck with interlocking compression screw and short anchored intramedullary justin. Mild medial displacement of the greater trochanter and femoral neck compared to the humeral shaft with mild foreshortening is present. There is deformity previously seen has been reduced. Bony union not yet apparent. Distal femoral shaft is intact with very little degenerative change at the knee. IMPRESSION: Internal fixation of proximal femoral fracture involving the greater trochanter and base of the neck with mild medial displacement of the proximal fragments and foreshortening. Reduction of previous varus deformity noted. Electronically signed by: Clay Guerrero MD 01/08/2021 10:54 AM [facility]
--- NOTE | 2021-01-08 10:58 | RAD ---
EXAM DESCRIPTION: Hip,Left 2 Views CLINICAL HISTORY: DISPLACED FRACTURE COMPARISON: December 11, 2020 TECHNIQUE: AP/frog leg lateral FINDINGS: Two views left hip demonstrate internal fixation with compression screw and interlocking short anchored intramedullary justin. Slight medial displacement and impaction of the femoral head and neck component and greater trochanteric component unchanged from one month earlier. Minimal left maturing callus formation evident without bony union yet apparent. No new injury is noted. Acetabulum and superior and inferior pubic rami intact. IMPRESSION: Internal fixation of proximal femur and left hip fracture with subtle developing callus formation with no change in alignment. Electronically signed by: Clay Guerrero MD 01/08/2021 10:56 AM [facility]
== END ==
LOC: RAD 09:32
PROVIDERS: ATTEND Orthopaedic Surgery
DX: S72.22XD Displaced subtrochanteric fracture of left femur, subsequent encounter for closed fracture with routine healing (principal); Z98.890 Other specified postprocedural states

== ENCOUNTER → 2021-01-26 | Outpatient (CLI) | payer MEDICARE | LOC: YCHH 08:27 | PROVIDERS: ATTEND Family Medicine | DX: E11.9 Type 2 diabetes mellitus without complications (principal); E53.8 Deficiency of other specified B group vitamins; I25.10 Atherosclerotic heart disease of native coronary artery without angina pectoris; E78.5 Hyperlipidemia, unspecified; D64.9 Anemia, unspecified; D50.9 Iron deficiency anemia, unspecified ==